=== PATIENT | female | born 1950 | race Caucasian/White ===

== ENCOUNTER → 2020-09-28 14:17 | Outpatient (CLI) | payer OTHER, SELFPAY | PROVIDERS: Referring Provider Nurse Practitioner Family; Visit Provider Nurse Practitioner Family | DX: L02.91 Cutaneous abscess, unspecified (principal) | CPT/HCPCS: 87070; 87077; 87186; 87205 ==

== ENCOUNTER → 2020-10-08 14:02 | Outpatient (CLI) | payer MEDICARE, SELFPAY ==
[2020-10-08 15:22] LABS: Absolute Lymphocyte Count 1.23 X10^3/uL (0.83-4.51); Absolute Neutrophil Count 3.4 X10^3/uL (2.0-7.7); Basophil# 0.06 X10^3/uL; Basophil% 1.1 % (0-1); Eosinophil# 0.04 X10^3/uL; Eosinophils% 0.8 % (0-5); Hematocrit 44.5 % (37-47); Hemoglobin 14.4 g/dL (12.0-15.0); Lymphocyte # 1.23 X10^3/ul (4.0); Lymphocyte % 23.3 % (19-41); Mean Corp Hgb Conc 32.4 g/dL (32-36); Mean Corpuscular Hgb 31.4 pg (27.0-32.0); Mean Corpuscular Volume 96.9 fL (81-99); Mean Platelet Vol. 10.2 fl (6.2-12.0); Monocyte# 0.51 X10^3/uL; Monocyte% 9.7 % (0-10); NRBC Flagged by Analyzer 0 % (0-5); Neutrophil # 3.43 X10^3/uL (2.7-7.7); Neutrophil % 64.9 % (47-70); Platelet Count 227 K/mm3 (150-450); RBC Distribution Width CV 12.3 % (11.6-14.6); Red Blood Count 4.59 M/mm3 (4.2-5.4); White Blood Count 5.3 K/mm3 (4.4-11.0)
[2020-10-08 15:42] LABS: ALB/GLOB Ratio 1.1 RATIO (0.9-2.4); AST(SGOT) 23 U/L (15-37); Alanine Aminotransfer ALT/SGPT 25 U/L (13-56); Albumin, Serum 3.9 g/dL (3.2-5.0); Alkaline Phosphatase 79 U/L (45-117); Anion Gap 5 (5-15); BUN 16 mg/dL (7-18); Calcium,Total 9.5 mg/dL (8.5-10.1); Chloride 103 mmol/L (98-107); Cholesterol 223 mg/dL (200); Creatinine, Serum 0.67 mg/dL (0.55-1.02); EST Glomerular Filtration Rate 93 mL/min (>60); Est Glom Filt Rate - Afr Amer 112 mL/min (>60); Globulin 3.7 g/dL (2.2-4.2); Glucose 95 mg/dL (74-106); High Density Lipoprotein 94 mg/dL; Potassium 3.7 mmol/L (3.5-5.1); Protein, Total 7.6 g/dL (6.4-8.2); Sodium Level 138 mmol/L (136-145); Triglycerides 49 mg/dL; Very Low Density Lipoprotein 10 mg/dL (5-40)
[2020-10-08 15:44] LABS: Vitamin D,25 Hydroxy 60.2 ng/mL
== END ==
PROVIDERS: PCP Internal Medicine; Referring Provider Internal Medicine; Visit Provider Internal Medicine
DX: M81.0 Age-related osteoporosis without current pathological fracture (principal); I10 Essential (primary) hypertension
CPT/HCPCS: 36415; 80053; 80061; 82306; 85025

== ENCOUNTER → 2020-10-15 12:40 | Outpatient (CLI) | payer MEDICARE, SELFPAY ==
[2020-10-11 13:53] VITALS: BMI 19.6
--- NOTE | 2020-10-15 12:43 | BI_ITS ---
MAMMOGRAPHY - BILATERAL SCREENING REASON FOR EXAM: Female, 69 years old. Routine annual screening examination. PERTINENT HISTORY: Non-contributory. TECHNIQUE: Digital bilateral breast azalia (3D mammographic acquisition) in the CC and MLO projections. 2-D mediolateral oblique (MLO) and craniocaudad (CC) views of both breasts were obtained. CAD: Full Field Digital Mammography with Computer Added Detection was performed. COMPARISON: No comparison mammograms available at this time. If any prior films become available, an addendum to this report can be generated. FINDINGS: Breast Composition: The breasts are extremely dense, which lowers the sensitivity of mammography. There are no dominant masses or suspicious calcifications. No other significant abnormalities are identified. BI/SCRN MAMM (CAD)W/AZALIA BILAT IMPRESSION: Negative screening mammogram. Yearly followup mammogram recommended. (A) ASSESSMENT CATEGORY: BIRADS Category 1: Negative. A letter regarding these results will be sent to the patient by the facility within 30 days. Approximately 10% of breast cancers are not detected by mammography. A normal mammogram should not delay biopsy of a clinically suspicious abnormality. [id number] Electronically Signed: Guillermo Baires MD at 15:19 EDT , Service support ,
--- NOTE | 2020-10-15 12:49 | BD_ITS ---
STUDY: DUAL ENERGY X-RAY ABSORPTIOMETRY / DXA REASON FOR EXAM: Female, 69 years old. Osteoporosis TECHNIQUE: Bone Mineral Density (BMD) measurements of lumbar spine and bilateral hips were obtained. COMPARISON: None. FINDINGS: Lumbar Spine (L1-L4): g/cm2 (0.661) / T-score (-4.3) / Z-score (-2.6) Findings are suggestive of osteoporosis with a high fracture risk. Increased kyphosis. Left Femur Total: g/cm2 (0.525) / T-score (-3.8) / Z-score (-2.3) Left Femoral Neck: g/cm2 (0.555) / T-score (-3.5) / Z-score (-1.5) Right Femur Total: g/cm2 (0.523) / T-score (-3.8) / Z-score (-2.3) Right Femoral Neck: g/cm2 (0.611) / T-score (-3.1) / Z-score (-1.3) BD/Dexa Bone Density Study IMPRESSION: The patient is considered osteoporotic as outlined below according to World Cory Organization (WHO) criteria with a high fracture risk. Reference Information: The T-score is the number of standard deviations above or below the standard which is normal for young adults at their peak bone mineral density. The World Health Organization (WHO) interprets the T-scores as follows: Above -1 Normal bone density Between -1 and -2.5 Osteopenia Equal to / or below -2.5 Osteoporosis As a practical clinical guideline, osteopenia may be graded as follows: Mild -1 through -1.5 Moderate -1.6 through -2.0 Severe -2.1 through -2.4 The Z-score is the number of standard deviations above or below age-matched controls. A Z-score of less than -1.5 would be considered abnormal. References: 1. NIH Osteoporosis and Related Bone Diseases www osteo.org 2. International Society for Clinical Densitometry www iscd.org 3. National Osteoporosis Foundation www nof.org Electronically Signed: Guillermo Baires MD at 13:43 EDT , Service support ,
== END ==
PROVIDERS: PCP Internal Medicine; Referring Provider Internal Medicine; Visit Provider Internal Medicine
DX: Z12.31 Encounter for screening mammogram for malignant neoplasm of breast (principal); M81.0 Age-related osteoporosis without current pathological fracture
CPT/HCPCS: 77063; 77067; 77080

== ENCOUNTER → 2020-10-24 15:09 | Outpatient (CLI) | payer MEDICARE, SELFPAY | PROVIDERS: PCP Internal Medicine; Referring Provider Internal Medicine; Visit Provider Internal Medicine | DX: B37.0 Candidal stomatitis (principal) | CPT/HCPCS: 87070; 87205 ==

== ENCOUNTER 2020-11-06 11:21 | Day surgery (SDC) | payer MEDICARE, SELFPAY ==
[2020-10-11 13:53] VITALS: BMI 19.6
--- NOTE | 2020-11-06 | CYST_PTH ---
PATIENT: OLAYINKA CROW LOC: [facility] [place] U#:[id number] AGE/SX: 69/F ROOM: RE11/06/[address]: Dr. Tawanda Tavera MD : 1950 BED: DIS: 11/06/2020 SPEC #: [id number] RECD: 11/06/20 14:07 STATUS: JAMMIE RODRIGUEZ #: [id number] DOMONIQUE: 11/06/20 00:[address]: Tawanda Tavera DEPT: SURGICAL PATHOLOGY RECD BY: Darrell Montague ENTERED: 11/07/20 07:42 SP TYPE: Cyst OTHR DR: Dr. Adria Dos Santos MD Tissues: CYST Procedures: Surgery Specimen Level IV HEADER OPERATION: Excision sebaceous cyst left thigh PRE-OP DIAGNOSIS: Sebaceous cyst TISSUE SUBMITTED: Sebaceous cyst left thigh MICROSCOPIC DIAGNOSIS Sebaceous cyst left thigh, excision: Epidermal inclusion cyst. Extensive dermal chronic inflammation, histiocytic reaction and foreign body giant cell reaction. JUAN MANUEL:cecy 11/08/2020 MICROSCOPIC DESCRIPTION Slides are reviewed. GROSS DESCRIPTION Received in fixative is one container labeled with the patient's name and designated left thigh sebaceous cyst. The specimen consists of a piece of gooden-white skin measuring 2.5 x 1 cm and up to 0.3 cm in thickness. The skin surface shows area of ulceration. The specimen is inked, serially sectioned and submitted entirely in one cassette. / JUAN MANUEL:cecy 11/07/20 TC:5 CPT: 92284
[2020-11-06 11:54] VITALS: BP 155/85; PULSE 98; RESP 16; TEMP 36.2; O2SAT 99; BMI 19.8
[2020-11-06] MEDS: Lactated Ringers 1,000 ML 100 ML IV ×2 (12:00→13:33)
[2020-11-06] MEDS: Lidocaine 1%/Epi 1:200 (30ml) 30 ML AMPUL (12:15)
--- NOTE | 2020-11-06 12:33 | HP.PCM_ITS ---
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 Is patient in pain?: No Allergies cefaclor Allergy (Intermediate, Verified 10/11/20 13:28) Rash tetracycline Allergy (Intermediate, Verified 10/11/20 13:28) sores in mouth Medications ascorbate calcium (vitamin C) 500 mg tablet 500 mg PO DAILY 10/02/20 [History Confirmed 10/11/20] calcium carb 333 mg-vit D3 133 unit-mag ox 133 mg-zinc oxide 5 mg tab tab PO 10/02/20 [History Confirmed 10/11/20] cholecalciferol (vitamin D3) 50 mcg (2,000 unit) capsule 50 mcg PO DAILY 10/02/20 [History Confirmed 10/11/20] cyanocobalamin (vitamin B-12) 1,000 mcg capsule 1,000 mcg PO .qad cap 10/02/20 [History Confirmed 10/11/20] lysine 500 mg tablet 500 mg PO DAILY 10/02/20 [History Confirmed 10/11/20] super papaya enzyme plus PO 10/02/20 [History Confirmed 10/11/20] nystatin 100,000 unit/mL oral suspension 500,000 unit PO TID #200 ml 10/08/20 [Rx Confirmed 10/11/20] PFSH Medical History GERD (gastroesophageal reflux disease) (Acute) GI problem (Acute) Hemorrhoids (Acute) History of back problems (Acute) Hx of migraine headaches (Acute) Osteoporosis (Acute) Seasonal allergies (Acute) Vision problem (Acute) Vitamin deficiency (Acute) infected sebaceous cyst left thigh (Acute) Surgical History History of removal of cyst (Acute) history ORIF right little finger (Acute) Family History Mother Heart disease Arthritis Hypertension Kidney disease Skin cancer Thyroid disorder Father Heart disease Hypertension CVA (cerebral vascular accident) Brother Heart disease Hypertension Grandfather Alcohol abuse Arthritis Pancreatic cancer Other Severe allergy Social History (Updated 10/11/20 @ 15:[address] Tawanda Tavera MD) Smoking Status: Never smoker alcohol intake: never substance use type: does not use what type of physical activity do you participate in: walking frequency: 1-2 times per week HPI HPI HPI: OLAYINKA CROW, is a 69 F who presents to the office today for HPI HPI Surgical H&P: Yes HPI: OLAYINKA CROW, is a 69 F who presents to the office today for Follow-up for cyst on her inner thigh. The patient has decreased erythema after taking antibiotics. She did develop thrush with antibiotics. 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 General General: Yes weight change and fatigue; no appetite, colon cancer, breast cancer or weakness HEENT HEENT: No difficulty swallowing, eye injury, eye surgery, swollen glands or hoarseness Endo Endocrine: No thyroid disease, diabetes mellitus, thyroid cancer, Hair loss, heat intolerance or cold intolerance Skin Skin: Yes rash; no changing moles Breast Breast: No left breast lump, right breast lump, nipple discharge, breast pain, abnormal mammogram, abnormal US or breast enlargement Musc Musculoskeletal: Yes back problems; no arthritis, rheumatoid arthritis, gout or joint pain Cardio Cardiovascular: No murmur, pacemaker, heart disease, atrial fibrillation, high blood pressure, heart attack, heart stent, palpitations, shortness of breat with exertion or chest pain Psych Psychiatric: No depression, anxiety or hearing voices Resp Respiratory: No shortness of breath, No sleep apnea, No cough, No COPD, No asthma, No emphysema, No wheezing Gastro Gastrointestinal: No abdominal pain, No nausea or vomiting, Yes diarrhea, No constipation, No blood in stool, No acid reflux, Yes hemorrhoids, No ulcers, No gallbladder problem, No black,tarry stools Ashish Hematologic: No blood thinners, No blood disorders, No bleeding, No anemia, No blood clots Neuro Neurologic: No system reviewed and no additional complaints, except as docu, No as per HPI, No abnormal walking, No abnormal hearing, No abnormal movements, No abnormal speech, No behavioral changes, No burning sensations, No confusion, No seizure-like activity, No unsteadiness, No dizziness, No localized weakness, No frequent falls, No headache(s), No lack of coordination, No loss of vision, No memory loss, Yes numbness, No other visual disturbances, No radiating pain, No restless legs, No sensory deficit, No fainting, Yes tingling, No tremor(s), No weakness, No other Exam Const General: cooperative Orientation: alert, oriented x3 Chest Breast Palpation: No nipple discharge Resp Effort & Inspection: normal respiratory effort Auscultation: clear to auscultation bilaterally Cardio Rate: regular rate Rhythm: regular rhythm Heart Sounds: no murmurs GI Inspection: non-distended Palpation: soft, nontender Skin Other: Inflamed sebaceous cyst of the left thigh Assessment & Plan Problems 1. Infected sebaceous cyst L72.3; L08.9 Plan The patient has an infected sebaceous cyst of the left thigh. It is improved since last visit but it is still inflamed. The area is open and I was able to express sebaceous material through it. It is still inflamed but not grossly infected. I recommend excision in the operating room. I discussed this with her in detail as well as the risks of bleeding and infection. The patient is willing to have this removed in the operating room under light sedation. Tawanda Tavera MD Pager: [facility] [address] [place] [address], [address] [place] [address] Office: I have re-examined the patient. There are no clinical changes since date of exam.
[2020-11-06 13:10] VITALS: BP 101/64; BP 155/85; BP 98/56; PULSE 85; PULSE 88; RESP 18; TEMP 36.4; O2SAT 95; O2SAT 97
--- NOTE | 2020-11-06 13:11 | OP.PCM_ITS ---
Problem List (1) Sebaceous cyst Status: Acute Report of Operation Date of Procedure: 11/06/20 Pre-Operative Diagnosis: Inflamed sebaceous cyst of the left thigh Post-Operative Diagnosis: Same Surgery/Procedure Performed:: Excision of sebaceous cyst of the left thigh Specimen's removed: Left thigh cyst Description of Procedure: Patient was brought back to the operating room MAC anesthesia was induced. The left thigh was prepped and draped in usual sterile fashion. An incision was marked and then injected with local anesthesia. An incision was made with a s calpel in an elliptical fashion. The complete cyst wall was removed and this was resected sharply back to clean fat. The cavity was irrigated and suctioned dry and hemostasis was obtained using electrocautery. The cyst wall measured approximately 1.8 cm. The skin was closed with interrupted 3-0 Vicryl sutures in a subdermal fashion. Steri-Strips and bandage were then applied. Patient was then taken to PACU in stable condition.
--- NOTE | 2020-11-06 13:14 | DCINST_ITS ---
Discharge Diet: Light diet - advance as tolerated Discharge Activity: No Restrictions, May Drive May shower in (days): 1 Lifting Restrictions: no restriction Call your doctor if your incision/area has: Continuous Slow Oozing, Sudden Increased Bleeding, Increased Pain/ Swelling, Increased Redness, Foul Smelling Discharge, Swelling at the incision site Call your doctor if you observe: Fever of 101 or Higher Suture Line Care: Avoid Pulling/Pushing, Avoid Pinching/Bending Change Dressing in (Days):: 2 - Leave steri-strips in place for 1 week. Allergies/Adverse Reactions: Allergies cefaclor Allergy (Intermediate, Verified 11/06/20 11:32) Rash tetracycline Allergy (Intermediate, Verified 11/06/20 11:32) sores in mouth Medications to take at Discharge ascorbate calcium (vitamin C) 500 mg tablet 500 mg PO DAILY 10/02/20 cholecalciferol (vitamin D3) 50 mcg (2,000 unit) capsule 50 mcg PO DAILY 10/02/20 cyanocobalamin (vitamin B-12) 1,000 mcg capsule 1,000 mcg PO QODAY cap 10/02/20 lysine 500 mg tablet 500 mg PO DAILY 10/02/20 super papaya enzyme plus 1 tablet PO TID 10/02/20 Calmag Zinc 15 ml PO DAILY 10/18/20 [place]ee-3 Fatty Acids/Fish Oil [[place] 3 Fish Oil Softgel] 1 each PO DAILY 10/18/20 L.acidoph,Paracasei, B.lactis [Probiotic] 1 each PO DAILY 10/29/20 Hydrocodone/Acetaminophen [Hydrocodon-Acetaminophen 5-325] 1 tab PO Q6H PRN PRN 2 Days #5 tablet 11/06/20 The following prescriptions were given: Hydrocodone/Acetaminophen [Hydrocodon-Acetaminophen 5-325] 1 tab PO Q6H PRN PRN 2 Days #5 tablet PRN Reason: Pain Score 4-10/10 Transmission Status: Sent to [facility] Primary Care Physician: Adria Dos Santos MD [Primary Care Provider] - Test Results: Test results from this visit will be discussed in further detail at your follow- up appointment, if applicable. Please Follow Up With: Tawanda Tavera MD When: Please call to schedule 2 week follow up appointment. [phone]
[2020-11-06 13:15] VITALS: BP 105/63; BP 155/85; PULSE 85; RESP 18; O2SAT 96
[2020-11-06 13:20] VITALS: BP 102/66; BP 155/85; PULSE 81; RESP 18; O2SAT 98
[2020-11-06 13:34] VITALS: BP 115/71; BP 155/85; PULSE 84; RESP 18; TEMP 36.3; O2SAT 98
[2020-11-06 14:10] VITALS: BP 125/77; BP 155/85; PULSE 81; RESP 16; TEMP 36.8; O2SAT 95
== END 2020-11-06 14:37 | disposition home or self-care (01) ==
LOC: SDC 11:22 → AC 11:24
PROVIDERS: PCP Internal Medicine; Referring Provider Surgery; Visit Provider Surgery
PROC: (CPT 11402; principal; 2020-11-06 12:45)
DX: L72.3 Sebaceous cyst (principal); L72.0 Epidermal cyst; L08.9 Local infection of the skin and subcutaneous tissue, unspecified; Z88.1 Allergy status to other antibiotic agents
CPT/HCPCS: 11402; 87426; 88304; 88305; C9803; J7120; J2405

== ENCOUNTER 2021-11-06 15:38 | Outpatient (CLI) | payer MEDICARE, SELFPAY ==
[2021-11-06 16:37] LABS: Absolute Lymphocyte Count 1.13 X10^3/uL (0.83-4.51); Absolute Neutrophil Count 5.1 X10^3/uL (2.0-7.7); Basophil# 0.07 X10^3/uL; Eosinophil# 0.03 X10^3/uL; Eosinophils% 0.4 % (0-5); Hematocrit 42.7 % (37-47); Hemoglobin 13.6 g/dL (12.0-15.0); Lymphocyte # 1.13 X10^3/ul (0.83-4.51); Mean Corp Hgb Conc 31.9 g/dL (32-36); Mean Corpuscular Volume 97.3 fL (81-99); Mean Platelet Vol. 9.4 fl (6.2-12.0); Monocyte# 0.77 X10^3/uL; Monocyte% 10.9 % (0-10); NRBC Flagged by Analyzer 0 % (0-5); Neutrophil # 5.06 X10^3/uL (2.7-7.7); Neutrophil % 71.6 % (47-70); Platelet Count 209 K/mm3 (150-450); RBC Distribution Width CV 11.9 % (11.6-14.6); RBC Distribution Width SD 43.4 fl (35.1-43.9); Red Blood Count 4.39 M/mm3 (4.2-5.4); White Blood Count 7.1 K/mm3 (4.4-11.0)
[2021-11-06 16:55] LABS: Vitamin D,25 Hydroxy 68.8 ng/mL
[2021-11-06 16:57] LABS: ALB/GLOB Ratio 0.9 RATIO (0.9-2.4); AST(SGOT) 23 U/L (15-37); Alanine Aminotransfer ALT/SGPT 30 U/L (13-56); Albumin, Serum 3.6 g/dL (3.2-5.0); Alkaline Phosphatase 83 U/L (45-117); Anion Gap 4 (5-15); BUN 22 mg/dL (7-18); Calcium,Total 9.3 mg/dL (8.5-10.1); Chloride 103 mmol/L (98-107); Cholesterol 211 mg/dL (200); Creatinine, Serum 0.69 mg/dL (0.55-1.02); EST Glomerular Filtration Rate 89 mL/min (>60); Est Glom Filt Rate - Afr Amer 108 mL/min (>60); Glucose 123 mg/dL (74-106); High Density Lipoprotein 76 mg/dL; Potassium 4.1 mmol/L (3.5-5.1); Protein, Total 7.6 g/dL (6.4-8.2); Sodium Level 138 mmol/L (136-145); Triglycerides 49 mg/dL; Very Low Density Lipoprotein 10 mg/dL (5-40)
== END 2021-11-06 23:59 | disposition home or self-care (01) ==
PROVIDERS: PCP Internal Medicine; Referring Provider Internal Medicine; Visit Provider Internal Medicine
DX: M81.0 Age-related osteoporosis without current pathological fracture (principal); E78.5 Hyperlipidemia, unspecified; H93.19 Tinnitus, unspecified ear
CPT/HCPCS: 36415; 80053; 80061; 82306; 85025

== ENCOUNTER → 2022-05-29 | Outpatient (CLI) | payer MEDICARE, SELFPAY ==
--- NOTE | 2022-05-29 14:31 | BI_ITS ---
MAMMOGRAPHY - BILATERAL SCREENING REASON FOR EXAM: Female, 71 years old. Routine annual screening examination. PERTINENT HISTORY: Non-contributory. TECHNIQUE: Digital bilateral breast azalia (3D mammographic acquisition) in the CC and MLO projections. 2-D mediolateral oblique (MLO) and craniocaudad (CC) views of both breasts were obtained. CAD: Full Field Digital Mammography with Computer Added Detection was performed. COMPARISON: Comparison is made with prior study of 10/15/2020. FINDINGS: Breast Composition: The breasts are extremely dense, which lowers the sensitivity of mammography. There are no dominant masses or suspicious calcifications. No other significant abnormalities are identified. There has been no significant change since the prior study. BI/SCRN MAMM (CAD)W/AZALIA BILAT IMPRESSION: Stable bilateral screening mammogram. Yearly follow-up mammogram recommended. (A) ASSESSMENT CATEGORY: BIRADS Category 1: Negative. A letter regarding these results will be sent to the patient by the facility within 30 days. Approximately 10% of breast cancers are not detected by mammography. A normal mammogram should not delay biopsy of a clinically suspicious abnormality. [id number] Electronically Signed: Guillermo Baires MD at 15:09 EDT ,
== END | disposition home or self-care (01) ==
LOC: OPBI 14:31
PROVIDERS: PCP Internal Medicine; Referring Provider Internal Medicine; Visit Provider Internal Medicine
DX: Z12.31 Encounter for screening mammogram for malignant neoplasm of breast (principal)
CPT/HCPCS: 77063; 77067

== ENCOUNTER 2022-06-11 15:00 | Outpatient (RCR) | payer MEDICARE, SELFPAY ==
--- NOTE | 2022-06-08 09:15 | HP.PTEVAL_ITS ---
Patient's Visit Information OLAYINKA CROW is a 71 year old F referred to Physical Therapy by Dr. Adria Dos Santos MD with a diagnosis of imbalance and gait abnormality. Date of Evaluation: 05/29/22 Physical Therapist: Luis Gordillo DPT - Visit Plan Frequency: 1x/Week Duration: 6 Weeks Plan: Start with retro wt. shifting, narrow LILIAM and eyes closed vestibular exercises. PRogress HEP weekly. - Subjective Pt. is here today for her initial evaluation with diagnosis of imbalance and gait abnormality. Pt. reports overall doing okay, but has had increased imbalance over the past 3 months. She reports having some bilateral muscle wea kness in her legs, but not severe. She feels like she falls forward or to the right side. She has always been able to correct her LOB. Pt. reports no pain. NO changes in vision, no additional medications recently. She denies dizziness or light headedness as well. Pt. has not been exercising as much or doing as much walking since having a surgery ~2 months ago. Pt. has a gluteal abscess excision. Pt. is hopeful to get back to more walking and decrease her risk for falling by improving her balance. - Objective POSTURE: pt. had slight increased flexed posture. Mostly through her thoracic spine. Rigid thoracic spine noted. PALPATION: No issues with palpation throughout BLEs. NEURO: pt. has normal sensation in BLEs to light and sharp touch. Pt. has normal DTR to bilateral Achilles and Patellar tendons. Pt. is able to rise on toe without issues, increased difficulty with rising on heels. ROM: Pt. has good ROM in bilateral LEs. NO pain noted. Slight HS tightness b ilaterally ~75deg in 90/90 testing. Normal hip ROM noted. MMT: RLE: ankle DF 27.7#, PF 50.1#; knee: ext 29.1, flexion 23.3#; hip: flexion 22.1#, abd 15.4#; ext 31.3#. LLE: ankle DF26.5# PF 44.6#; knee: ext 24.1#; flexion 21.8#; hip: flexion 24.3#, abd 14.5#; ext 29.1#. GAIT: Pt. has decent gait pattern without AD. She had slight flexed posture in stance. Pt. has symmetrical step length, mild lateral hip translation. No Trendelenburg noted. Good swing through with good B foot clearance. STAIRS: Pt. is able to negotiate ascend without HR, but uses 1 HR with descending. Reciprocal pattern noted. TU.9sec without AD. FGA . PT. did well on the CATSIB being able to maintain stability but did have increased sway. I did have her do this on the balance machine and she had more sway and was worse than normal with eyes closed and narrow LILIAM. She was with in normal limits for the other 3 movements. This also showed that she tends to atnerior wt. shift almost constantly. - Balance/Special Test Scores Functional Gait Assessment Score: 27 % Disability: 10.0000 CATSIB Score (Max score 120 seconds): 120 Lower Extremity Functional Score: 50 TUG Test Time Seconds: 10.9 30 Second Chair Rise Test Seconds: 11 - Goals Goal 1:: LTG: Pt. to be I with HEP. Goal Time Frame: 4-6 Weeks Goal 2:: STG: PT. to be able maintain SLS for 30 sec on BLEs. Goal Time Frame: 2 Weeks Goal 3:: LTG: Pt. to score with in normal levels of CATSIB and postural sway index. Goal Time Frame: 2-4 Weeks Goal 4:: LTG: Pt. report no occurrences of near misses with falls. Goal Time Frame: 4-6 Weeks - Rehabilitation Potential Physical Therapy Diagnosis: Pt. has signs and symptoms consistent with imbalance and gait abnormalities. She has not fallen, but reports near falls, mostly forward and to the side. Pt. is overall doing well, but would benefit from PT to increase her stability and reduce risk for future falls. Rehabilitation Potential: Excellent - Anticipated Interventions Patient/Client Instruction: Educate patient on: Condition, Plan of Care, Risk Factors, Benefits of Fitness Program For the Purpose of:: To foster healthy habits, To improve decision making, To facilitate caregiver knowledge, To improve self management, To prevent re- injury, To improve ability to perform tasks related to life management Therapeutic Exercise to Include: Strength training, Power training, Balance training, Coordination, Postural training, Flexibilty training, Gait and locomotor training, via Neurocom Balance Mas, Passive ROM, Active ROM For the Purpose of:: To decrease level of supervision to perform tasks, To improve ability of physical actions for home/community/work/leisure, To improve gait and locomotor functions, To improve health of tissue, To decrease soft tissue restriction, To increase flexibility/ROM, To improve endurance, To improve balance, To improve safety with gait Thank you for the opportunity to evaluate your patient. For Medicare and Medicare HMO plans, please review the plan of care and approve it. It will need to be FAXED BACK to us at [phone] for Medicare purposes. For Medicare only, by signing this I certify the plan of care. Please let me know if there are questions or concerns regarding this plan of care. Physician Signature: Date:
== END 2022-06-11 19:00 | disposition home or self-care (01) ==
LOC: PT 15:00
PROVIDERS: PCP Internal Medicine; Referring Provider Internal Medicine; Visit Provider Internal Medicine
DX: R26.89 Other abnormalities of gait and mobility (principal)
CPT/HCPCS: 97161; 97530

== ENCOUNTER → 2022-11-19 | Outpatient (CLI) | payer MEDICARE, SELFPAY ==
[2022-11-19 16:51] LABS: Absolute Lymphocyte Count 1.21 X10^3/uL (0.83-4.51); Absolute Neutrophil Count 4.3 X10^3/uL (2.0-7.7); Basophil# 0.08 X10^3/uL; Basophil% 1.2 % (0-1); Eosinophil# 0.05 X10^3/uL; Eosinophils% 0.8 % (0-5); Hematocrit 43.4 % (37-47); Hemoglobin 13.9 g/dL (12.0-15.0); Lymphocyte # 1.21 X10^3/ul (0.83-4.51); Lymphocyte % 18.7 % (19-41); Mean Corpuscular Hgb 31.4 pg (27.0-32.0); Mean Platelet Vol. 9.9 fl (6.2-12.0); Monocyte# 0.85 X10^3/uL; Monocyte% 13.2 % (0-10); NRBC Flagged by Analyzer 0 % (0-5); Neutrophil # 4.26 X10^3/uL (2.7-7.7); Neutrophil % 65.9 % (47-70); Platelet Count 229 K/mm3 (150-450); RBC Distribution Width CV 12.6 % (11.6-14.6); RBC Distribution Width SD 45.1 fl (35.1-43.9); Red Blood Count 4.43 M/mm3 (4.2-5.4); White Blood Count 6.5 K/mm3 (4.4-11.0)
[2022-11-19 17:09] LABS: ALB/GLOB Ratio 0.9 RATIO (0.9-2.4); AST(SGOT) 29 U/L (15-37); Alanine Aminotransfer ALT/SGPT 40 U/L (13-56); Albumin, Serum 3.5 g/dL (3.2-5.0); Alkaline Phosphatase 72 U/L (45-117); Anion Gap 2 (5-15); BUN 23 mg/dL (7-18); BUN/Creat Ratio 33.7 RATIO (10-20); Calcium,Total 9.7 mg/dL (8.5-10.1); Chloride 103 mmol/L (98-107); Creatinine, Serum 0.68 mg/dL (0.55-1.02); EST Glomerular Filtration Rate 89 mL/min (>60); Est Glom Filt Rate - Afr Amer 108 mL/min (>60); Globulin 4.1 g/dL (2.2-4.2); Glucose 100 mg/dL (74-106); Magnesium 2.2 mg/dL (1.6-2.6); Potassium 3.9 mmol/L (3.5-5.1); Protein, Total 7.6 g/dL (6.4-8.2); Sodium Level 137 mmol/L (136-145)
[2022-11-19 17:11] LABS: Vitamin D,25 Hydroxy 73.7 ng/mL
== END | disposition home or self-care (01) ==
LOC: BIMLAB 15:05
PROVIDERS: PCP Internal Medicine; Referring Provider Internal Medicine; Visit Provider Internal Medicine
DX: I10 Essential (primary) hypertension (principal); M81.0 Age-related osteoporosis without current pathological fracture
CPT/HCPCS: 36415; 80053; 82306; 83735; 85025

== ENCOUNTER → 2022-12-15 | Outpatient (CLI) | payer MEDICARE, SELFPAY ==
--- NOTE | 2022-12-15 14:01 | BD_ITS ---
STUDY: DUAL ENERGY X-RAY ABSORPTIOMETRY / DXA REASON FOR EXAM: Female, 72 years old. Osteoporosis TECHNIQUE: Bone Mineral Density (BMD) measurements of lumbar spine and bilateral hips were obtained. COMPARISON: Comparison is made with prior study of October 15, 2020. FINDINGS: Lumbar Spine (L1-L4): g/cm2 (0.615) / T-score (-4.0) / Z-score (-1.6) Findings are suggestive of osteoporosis with a high fracture risk. Left Femur Total: g/cm2 (0.530) / T-score (-3.4) / Z-score (-1.7) Left Femoral Neck: g/cm2 (0.500) / T-score (-3.1) / Z-score (-1.1) Right Femur Total: g/cm2 (0.555) / T-score (-3.2) / Z-score (-1.4) Right Femoral Neck: g/cm2 (0.494) / T-score (-3.2) / Z-score (-1.2) The T-Scores on the most recent prior examination were: Lumbar Spine (L1-L4): There has been improvement of bone density since the previous examination. Left Femur Total: which represents an improvement of 12.2%. Right Femur Total: which represents an improvement of 17.8%. BD/Dexa Bone Density Study IMPRESSION: The patient is considered osteoporotic as outlined below according to World Cory Organization (WHO) criteria with a high fracture risk. There has been improvement of bone density since the previous examination. Reference Information: The T-score is the number of standard deviations above or below the standard which is normal for young adults at their peak bone mineral density. The World Health Organization (WHO) interprets the T-scores as follows: Above -1 Normal bone density Between -1 and -2.5 Osteopenia Equal to / or below -2.5 Osteoporosis As a practical clinical guideline, osteopenia may be graded as follows: Mild -1 through -1.5 Moderate -1.6 through -2.0 Severe -2.1 through -2.4 The Z-score is the number of standard deviations above or below age-matched controls. A Z-score of less than -1.5 would be considered abnormal. References: 1. NIH Osteoporosis and Related Bone Diseases www osteo.org 2. International Society for Clinical Densitometry www iscd.org 3. National Osteoporosis Foundation www nof.org Electronically Signed: Guillermo Baires MD at 14:12 EDT ,
== END | disposition home or self-care (01) ==
LOC: OPBD 13:54
PROVIDERS: PCP Internal Medicine; Referring Provider Internal Medicine; Visit Provider Internal Medicine
DX: M81.0 Age-related osteoporosis without current pathological fracture (principal)
CPT/HCPCS: 77080

== ENCOUNTER → 2023-01-23 | Outpatient (CLI) | payer MEDICARE, SELFPAY ==
--- NOTE | 2023-01-23 14:09 | RAD_ITS ---
STUDY: XR Chest 2 Views 01/23/2023 2:05 PM REASON FOR EXAM: Female, 72 years old. CHEST PAIN cough COMPARISON: None TECHNIQUE: XR Chest 2 Views FINDINGS: There is no demonstrated pleural abnormality. Left lower lobe infiltrate. The lung youngblood are hyperexpanded. Enlarged heart size. Normal mediastinum. Normal jaclyn. Prominent appearing increased interstitial lung markings. Normal visualized pulmonary arteries. There is atherosclerotic calcification of the aortic arch with tortuosity. There are diffuse degenerative changes of the visualized thoracic spine. There is degenerative osteoarthritis of the bilateral shoulders. There is no demonstrated abnormality of the visualized soft tissue structures of the upper abdomen. RAD/Chest PA and Lateral IMPRESSION: Left sided pneumonia. Electronically Signed: Honorio Alexander MD at 14:28 EDT ,
== END | disposition home or self-care (01) ==
LOC: RAD 14:01
PROVIDERS: PCP Internal Medicine; Referring Provider Physician Assistant; Visit Provider Physician Assistant
DX: R05.9 Cough, unspecified (principal)
CPT/HCPCS: 71046

== ENCOUNTER 2023-01-25 09:44 | Emergency (ER) | payer MEDICARE, SELFPAY ==
[2023-01-25] VITALS (7 sets, daily range): BP systolic 101–127; BP diastolic 69–84; PULSE 95–149; RESP 18–30; TEMP 36.8; O2SAT 92–97; BMI 19.8
--- NOTE | 2023-01-25 09:53 | NURSING ---
NO OLD EKGS
--- NOTE | 2023-01-25 09:57 | RAD_ITS ---
STUDY: X-RAY CHEST REASON FOR EXAM: Female, 72 years old. Check progression of pneumonia TECHNIQUE: PA and lateral views of the chest. COMPARISON: Comparison is made with prior study dated January 23, 2023. FINDINGS: EKG electrodes are seen. Hyperinflation. Since prior study, there has been progressive infiltration at the lung bases with evidence of a bronchiectasis. There is also evidence of a progressive increased markings at the right lung apex. Blunting of both costophrenic angles. Normal size heart. Normal mediastinum and jaclyn. Normal visualized pulmonary arteries. There is atherosclerotic calcification of the aortic arch with tortuosity. There are diffuse degenerative changes of the visualized thoracic spine. Normal visualized ribs, clavicles, and shoulders. There is no demonstrated abnormality of the visualized soft tissue structures of the upper abdomen. RAD/Chest PA and Lateral IMPRESSION: Progressive infiltrates at the lung bases as well as in the right lung apex. Electronically Signed: Guillermo Baires MD at 11:06 EDT ,
--- NOTE | 2023-01-25 09:58 | EKG12_ITS ---
Test Reason : SOB Blood Pressure : / mmHG Vent. Rate : 149 BPM Atrial Rate : 300 BPM P-R Int : 150 ms QRS Dur : 134 ms QT Int : 334 ms P-R-T Axes : 241 -45 -81 degrees QTc Int : 526 ms Atrial flutter Left axis deviation Non-specific intra-ventricular conduction block T wave abnormality, consider inferior ischemia T wave abnormality, consider anterolateral ischemia Abnormal ECG Confirmed by MACRINA FELICIANO, JATINDER ([id number]), society editor YANG CARDENAS ([id number]) on 01/26/2023 9:14:16 AM Referred By: BB Confirmed By:JATINDER SCHRADER MD
--- NOTE | 2023-01-25 10:00 | EX.ED.DYSGE1 ---
HPI History of Present Illness Chief Complaint: Palpitations Informant: patient Narrative Narrative: Patient started coughing and having some fevers that she measured at 100.4, mild shortness of breath around 3 or 4 days ago, she saw urgent care, she had an outpatient chest x-ray here that showed pneumonia she was started on Levaquin 750 mg daily, they called her today and checked on her and apparently she said she was not feeling well or any better and so she decided come to the ER to be evaluated further. EMS detected A-fib/flutter, she states she had some palpitations last night felt like her heart was racing, she never had that like that before, however right now that she is going in the 150-165 range, she states she feels nothing. She had some right-sided nonpleuritic chest discomfort last night but none since. No other chest discomfort. [facility] Medical History Abdominal discomfort Acute bronchitis Balance problem Callus of foot Change in skin mole Contact with and (suspected) exposure to other viral communicable diseases Dry skin dermatitis Flu vaccine need GERD (gastroesophageal reflux disease) GI problem Health care maintenance Hemorrhoids History of back problems Hx of migraine headaches Hyperlipidemia Hypertension infected sebaceous cyst left thigh Left buttock abscess Osteoporosis Scoliosis Seasonal allergies Tinnitus Urinary incontinence Venous insufficiency of both lower extremities Vision problem Vitamin deficiency Winged scapula of right side Home Medications alendronate 70 mg tablet 70 mg PO QWEEK #14 tabs 10/27/22 [Rx Last Taken 01/18/23] albuterol sulfate 90 mcg/actuation aerosol inhaler (Ventolin HFA) 1 - 2 puff inhalation Q4H PRN PRN Wheezing ##1 01/25/23 [Rx Last Taken Unknown] apixaban 5 mg tablet (Eliquis) 5 mg PO BID #60 tabs 01/25/23 [Rx Last Taken Unknown] diltiazem HCl 120 mg capsule,extended release 24 hr (Cardizem CD) 120 mg PO Q24H #30 caps 01/25/23 [Rx Last Taken Unknown] Allergy/AdvReac Type Severity Reaction Status Date / Time cefaclor Allergy Intermediate Rash Verified 01/25/23 09:45 tetracycline Allergy Intermediate sores in Verified 01/25/23 09:45 mouth Family History Mother Heart disease Arthritis Hypertension Kidney disease Skin cancer Thyroid disorder Father Heart disease Hypertension CVA (cerebral vascular accident) Brother Heart disease Hypertension Grandfather Alcohol abuse Arthritis Pancreatic cancer Other Severe allergy Surgical History History of removal of cyst history ORIF right little finger Social History (Updated 01/25/23 @ 10:[address] Ronny Smith MD) housing: other details: mobile home Smoking Status: Never smoker alcohol intake: never substance use type: does not use what type of physical activity do you participate in: walking frequency: 1-2 times per week ROS ROS ED Constitutional Constitutional ED: Reports fever(s) and malaise; Denies chills Eyes Eyes: Denies change in vision or diplopia ENT ENT ED: Denies rhinorrhea or sore throat Cardiovascular Cardiovascular: Reports chest pain and racing heartbeat Respiratory/Chest Respiratory/Chest: Reports cough, dyspnea and sputum Gastrointestinal Gastrointestinal: Denies abdominal pain, diarrhea, nausea or vomiting Genitourinary Genitourinary ED: Denies dysuria or hematuria Musculoskeletal Musculoskeletal: Denies back pain or neck pain Integumentary Denies abscess or rash Neurologic Neurologic: Denies headache(s), paresthesias or weakness Psychiatric Psychiatric: Denies anxiety or suicidal thoughts EXAM Physical Exam Const Vital Signs: 01/25/23 09:46 01/25/23 09:53 01/25/23 09:58 Temperature 98.3 F Temperature Source Oral Pulse Rate 149 H Respiratory Rate 20 H Respiratory Effort Normal Non-Labored Blood Pressure 127/84 H Blood Pressure Mean 98 Pulse Ox 92 Oxygen Delivery Method Room Air Room Air 01/25/23 10:45 01/25/23 11:00 01/25/23 12:00 Temperature Temperature Source Pulse Rate 99 95 96 Respiratory Rate 30 H 28 H 28 H Respiratory Effort Blood Pressure 111/80 112/69 101/69 Blood Pressure Mean 90 83 79 Pulse Ox 93 97 93 Oxygen Delivery Method Room Air Room Air Room Air Positive well nourished and well developed Constitutional Narrative: No respiratory distress. Conversive in full sentences without difficulty. General Appearance ED: well developed and NAD HEENT Reports moist mucous membranes normocephalic and atraumatic Eyes PERRL and EOMs intact bilaterally Neck full ROM, no lymphadenopathy, supple and no JVD Resp Resp Narrative: Mildly tachypneic but in no distress. Rales left side greater than right base, decreased breath sounds on the left slightly. Trachea midline. Cardio regular rate, regular rhythm and no murmurs Rate: tachycardic GI non-tender and non-distended Auscultation: normoactive bowel sounds Palpation: soft Back/Spine no CVA tenderness General Back: other FROM Extremity normal to inspection General Extremety ED: Negative for edema, pulses abnormal or tenderness General Extremity: Negative for edema or pulses abnormal Neuro oriented x3, CN's II-XII intact bilaterally and no sensory deficits noted Sensorium / Orientation: awake and alert Motor Exam: strength 5/5 throughout Psych mental status grossly normal Skin no rashes or lesions noted and no wounds MDM MDM MDM Narrative Medical decision making narrative: Patient with significant tachycardia with a flutter, but otherwise her vitals are stable, pulse ox 92% on room air. She was given IV fluids as well as Cardizem 20 mg IV push on reevaluation, she is rate controlled and looks sinus, I repeated the EKG which confirms this. She states she is feeling no different because she really was not feeling the tachycardia. Liver enzymes are all slightly elevated, making me question of possibility of Legionella infection, which the levofloxacin should cover. I sent a Legionella antigen from the urine, it is negative. Chest x-ray 2 view on my interpretation shows bilateral infiltrates worse on the left, basically showing that her left-sided infiltrate is now bilateral. She has only taken 1 dose of the levofloxacin so far, yesterday. We ambulated her on room air, she did okay and stayed at or above 92%, but very generally weak. I discussed admission. She declines, I think this is okay as long as she has close outpatient follow-up. Discussed with Gordo Vásquez in her PCP office who will try to arrange that, as well as Dr. Barragan with cardiology who agrees with my plan to discharge her on Eliquis and Cardizem 120 CD. I am also prescribing her albuterol aerosol/inhaler to use as needed for dyspnea which she has not required here. History & Record Review Discussion w/independent historian: EMS personnel and Patient Additional record(s) reviewed:: Prior outpatient record (Chest x-ray) Lab Data Attestation: I reviewed the patient's lab results. Labs: Laboratory Results - last 24 hr 01/25/23 01/25/23 01/25/23 09:39 09:39 09:39 WBC 10.3 RBC 4.57 Hgb 14.4 Hct 43.9 MCV 96.1 MCH 31.5 MCHC 32.8 RDW Std Deviation 44.3 H RDW Coeff of Jm 12.6 Plt Count 210 MPV 9.9 Immature Gran % (Auto) 0.200 Neut % (Auto) 70.9 H Lymph % (Auto) 15.4 L Snyder % (Auto) 13.0 H Eos % (Auto) 0.1 Baso % (Auto) 0.4 Absolute Neuts (auto) 7.3 Absolute Lymphs (auto) 1.59 Nucleated RBC % 0 PT 15.6 H INR 1.2 APTT 37.5 H Sodium 134 L Potassium 3.4 L Chloride 100 Carbon Dioxide 24.0 Anion Gap 10 BUN 18 Creatinine 1.01 Estim Creat Clear Calc 38.65 Est GFR (MDRD) Af Amer 69 Est GFR (MDRD) Non-Af 57 L BUN/Creatinine Ratio 17.8 Glucose 142 H Lactic Acid Calcium 9.8 Total Bilirubin 1.10 H AST 115 H ALT 122 H Alkaline Phosphatase 121 H Troponin I High Sens 27 Total Protein 7.9 Albumin 3.1 L Globulin 4.8 H Albumin/Globulin Ratio 0.6 L Urine Color Urine Clarity Urine pH Ur Specific Greenock Urine Protein Urine Glucose (UA) Urine Ketones Urine Occult Blood Urine Nitrite Urine Bilirubin Urine Urobilinogen Ur Leukocyte Esterase Urine RBC Urine WBC Ur Squamous Epith Cells Urine Bacteria Urine Mucus 01/25/23 01/25/23 10:15 11:25 WBC RBC Hgb Hct MCV MCH MCHC RDW Std Deviation RDW Coeff of Jm Plt Count MPV Immature Gran % (Auto) Neut % (Auto) Lymph % (Auto) Snyder % (Auto) Eos % (Auto) Baso % (Auto) Absolute Neuts (auto) Absolute Lymphs (auto) Nucleated RBC % PT INR APTT Sodium Potassium Chloride Carbon Dioxide Anion Gap BUN Creatinine Estim Creat Clear Calc Est GFR (MDRD) Af Amer Est GFR (MDRD) Non-Af BUN/Creatinine Ratio Glucose Lactic Acid 1.7 Calcium Total Bilirubin AST ALT Alkaline Phosphatase Troponin I High Sens Total Protein Albumin Globulin Albumin/Globulin Ratio Urine Color Yellow Urine Clarity Sl. Cloudy Urine pH 6.0 Ur Specific Green[place] 1.020 Urine Protein 100 H Urine Glucose (UA) Normal Urine Ketones 150 A* Urine Occult Blood 25 H Urine Nitrite Negative Urine Bilirubin Negative Urine Urobilinogen Normal Ur Leukocyte Esterase 25 H Urine RBC 0 SEEN Urine WBC 0-5 SEEN Ur Squamous Epith Cells 0-5 SEEN Urine Bacteria 1+ Urine Mucus 0 SEEN Radiography Chest X-Ray - ED: 2 View, Read by ED Physician and Left Infiltrate Diagnostic Testing: Clinical Impression(s) from Imaging Studies Chest X-Ray 01/25/23 09:57 IMPRESSION: Progressive infiltrates at the lung bases as well as in the right lung apex. Electronically Signed: Guillermo Baires MD at 11:06 EDT , Rhythm Strip Rhythm Strip: aflutter Rate: 150 Ectopy: None EKG Initial EKG: Attestation: I personally reviewed and interpreted this EKG as follows: Interpretation: No Acute Injury Pattern and Atrial Flutter Prior: No Prior Follow-up EKG: Attestation: I personally reviewed and interpreted this EKG as follows: Interpretation: Sinus Rhythm and No Acute Injury Pattern Comments: after cardizem Prior: Changed Discharge Plan Triage Chief Complaint: Palpitations ED Provider: Ronny Smith Dx/Rx/DC Orders Clinical Impression: Bilateral pneumonia, Elevated liver enzymes, Generalized weakness, Paroxysmal atrial flutter Prescriptions: New diltiazem HCl [Cardizem CD] 120 mg capsule,extended release 24hr 120 mg PO Q24H Qty: 30 0RF Eliquis 5 mg tablet 5 mg PO BID Qty: 60 0RF albuterol sulfate [Ventolin HFA] 90 mcg/actuation HFA aerosol inhaler 1 - 2 puff inhalation Q4H PRN PRN (Reason: Wheezing) Qty: 1 0RF No Action alendronate 70 mg tablet 70 mg PO QWEEK Qty: 14 1RF Primary Care Provider: Adria Dos Santos Disposition Disposition: Home, Self Care
[2023-01-25 10:13] LABS: Absolute Lymphocyte Count 1.59 X10^3/uL (0.83-4.51); Absolute Neutrophil Count 7.3 X10^3/uL (2.0-7.7); Basophil# 0.04 X10^3/uL; Basophil% 0.4 % (0-1); Eosinophil# 0.01 X10^3/uL; Eosinophils% 0.1 % (0-5); Hematocrit 43.9 % (37-47); Hemoglobin 14.4 g/dL (12.0-15.0); Lymphocyte # 1.59 X10^3/ul (0.83-4.51); Lymphocyte % 15.4 % (19-41); Mean Corp Hgb Conc 32.8 g/dL (32-36); Mean Corpuscular Hgb 31.5 pg (27.0-32.0); Mean Corpuscular Volume 96.1 fL (81-99); Mean Platelet Vol. 9.9 fl (6.2-12.0); Monocyte# 1.34 X10^3/uL; NRBC Flagged by Analyzer 0 % (0-5); Neutrophil # 7.31 X10^3/uL (2.7-7.7); Neutrophil % 70.9 % (47-70); Platelet Count 210 K/mm3 (150-450); RBC Distribution Width CV 12.6 % (11.6-14.6); RBC Distribution Width SD 44.3 fl (35.1-43.9); Red Blood Count 4.57 M/mm3 (4.2-5.4); White Blood Count 10.3 K/mm3 (4.4-11.0)
[2023-01-25 10:26] LABS: International Normalized Ratio 1.2; Prothrombin Time (Protime)PT. 15.6 SECONDS (11.7-14.9)
[2023-01-25 10:27] LABS: Partial Thromboplast Time 37.5 Seconds (24.1-36.2)
[2023-01-25 10:36] LABS: ALB/GLOB Ratio 0.6 RATIO (0.9-2.4); AST(SGOT) 115 U/L (15-37); Alanine Aminotransfer ALT/SGPT 122 U/L (13-56); Albumin, Serum 3.1 g/dL (3.2-5.0); Alkaline Phosphatase 121 U/L (45-117); Anion Gap 10 (5-15); BUN 18 mg/dL (7-18); BUN/Creat Ratio 17.8 RATIO (10-20); Calcium,Total 9.8 mg/dL (8.5-10.1); Chloride 100 mmol/L (98-107); Creatinine, Serum 1.01 mg/dL (0.55-1.02); EST Glomerular Filtration Rate 57 mL/min (>60); Est Glom Filt Rate - Afr Amer 69 mL/min (>60); Estimated Creatinine Clearance 38.65 ml/min; Globulin 4.8 g/dL (2.2-4.2); Glucose 142 mg/dL (74-106); Potassium 3.4 mmol/L (3.5-5.1); Protein, Total 7.9 g/dL (6.4-8.2); Sodium Level 134 mmol/L (136-145); Troponin-I HS 27 pg/mL (3.0-54.0)
[2023-01-25] MEDS: dilTIAZem 25 MG/5 ML Vial 20 MG IV BOLUS (10:48)
[2023-01-25 10:59] LABS: Lactic Acid 1.7 mmol/L (0.4-1.9)
--- NOTE | 2023-01-25 11:06 | EKG12_ITS ---
Test Reason : REPEAT Blood Pressure : / mmHG Vent. Rate : 095 BPM Atrial Rate : 095 BPM P-R Int : 116 ms QRS Dur : 066 ms QT Int : 352 ms P-R-T Axes : 019 009 032 degrees QTc Int : 442 ms Normal sinus rhythm Low voltage QRS Borderline ECG Confirmed by MACRINA FELICIANO, JATINDER ([id number]), video effects editor YANG CARDENAS ([id number]) on 01/26/2023 9:15:08 AM Referred By: BB Confirmed By:JATINDER SCHRADER MD
[2023-01-25 11:34] LABS: Mucous, Urine 0 SEEN /hpf (<or=2+); Red Blood Cells-Urine 0 SEEN /hpf (0-5)
[2023-01-25 11:35] LABS: Color, Urine Yellow (Yellow); Glucose, Dipstick Normal (Normal); Leukocyte Esterase-Dipstick 25 /ul (Negative); Nitrite-Dipstick Negative (Negative); Occult Blood-Urine 25 /ul (Negative); Protein-Dipstick 100 mg/dl (Negative); Urine Bilirubin Dipstick Negative (Negative); Urine Clarity Sl. Cloudy (Clear); Urine Urobilinogen Normal (Normal)
[2023-01-25 11:36] LABS: Ketone-Dipstick 150 mg/dl (Negative)
[2023-01-25 11:41] LABS: Bacteria 1+ /hpf (None Seen); Squamous Epithelial Cells - UA 0-5 SEEN /hpf (5-10); White Blood Cells 0-5 SEEN /hpf (0-5)
== END 2023-01-25 14:17 | disposition home or self-care (01) ==
PROVIDERS: Emergency Provider Emergency Medicine; PCP Internal Medicine; Visit Provider Emergency Medicine
DX: I48.92 Unspecified atrial flutter (principal); J18.9 Pneumonia, unspecified organism; R53.1 Weakness; R74.8 Abnormal levels of other serum enzymes; M81.0 Age-related osteoporosis without current pathological fracture; E78.5 Hyperlipidemia, unspecified; I10 Essential (primary) hypertension
CPT/HCPCS: 71046; 80053; 81001; 83605; 84484; 85025; 85610; 85730; 87040; 87086; 87088; 87449; 93005; 96360; 99285; J7040; A4216

== ENCOUNTER → 2023-01-25 | Outpatient (CLI) | payer MEDICARE, SELFPAY ==
[2023-01-25 10:10] LABS: Mucous, Urine 0 SEEN /hpf (<or=2+); Red Blood Cells-Urine 0 SEEN /hpf (0-5)
[2023-01-25 10:26] LABS: Color, Urine Yellow (Yellow); Glucose, Dipstick Normal (Normal); Ketone-Dipstick 5 mg/dl (Negative); Leukocyte Esterase-Dipstick 100 /ul (Negative); Nitrite-Dipstick Negative (Negative); Occult Blood-Urine 25 /ul (Negative); Protein-Dipstick 30 mg/dl (Negative); Urine Bilirubin Dipstick Negative (Negative); Urine Clarity Cloudy (Clear); Urine Urobilinogen Normal (Normal)
[2023-01-25 10:41] LABS: Bacteria 4+ /hpf (None Seen); Squamous Epithelial Cells - UA 0-5 SEEN /hpf (5-10); White Blood Cells 0-5 SEEN /hpf (0-5)
== END | disposition home or self-care (01) ==
LOC: LABSPEC 09:47
PROVIDERS: PCP Internal Medicine; Referring Provider Physician Assistant; Visit Provider Physician Assistant
DX: R32 Unspecified urinary incontinence (principal)
CPT/HCPCS: 81001; 87086

== ENCOUNTER → 2023-02-03 | Outpatient (CLI) | payer MEDICARE, SELFPAY ==
[2023-02-03 15:28] LABS: Absolute Lymphocyte Count 0.77 X10^3/uL (0.83-4.51); Absolute Neutrophil Count 3.5 X10^3/uL (2.0-7.7); Basophil# 0.08 X10^3/uL; Basophil% 1.6 % (0-1); Eosinophil# 0.04 X10^3/uL; Eosinophils% 0.8 % (0-5); Hematocrit 41.3 % (37-47); Hemoglobin 13.4 g/dL (12.0-15.0); Lymphocyte # 0.77 X10^3/ul (0.83-4.51); Lymphocyte % 15.3 % (19-41); Mean Corp Hgb Conc 32.4 g/dL (32-36); Mean Corpuscular Hgb 31.3 pg (27.0-32.0); Mean Corpuscular Volume 96.5 fL (81-99); Mean Platelet Vol. 9.4 fl (6.2-12.0); Monocyte# 0.66 X10^3/uL; Monocyte% 13.1 % (0-10); NRBC Flagged by Analyzer 0 % (0-5); Neutrophil # 3.45 X10^3/uL (2.7-7.7); Neutrophil % 68.4 % (47-70); Platelet Count 321 K/mm3 (150-450); RBC Distribution Width CV 12.6 % (11.6-14.6); RBC Distribution Width SD 44.6 fl (35.1-43.9); Red Blood Count 4.28 M/mm3 (4.2-5.4)
[2023-02-03 16:08] LABS: ALB/GLOB Ratio 0.7 RATIO (0.9-2.4); AST(SGOT) 39 U/L (15-37); Alanine Aminotransfer ALT/SGPT 51 U/L (13-56); Albumin, Serum 3.2 g/dL (3.2-5.0); Alkaline Phosphatase 84 U/L (45-117); Anion Gap 5 (5-15); BUN 17 mg/dL (7-18); BUN/Creat Ratio 24.6 RATIO (10-20); Calcium,Total 9.6 mg/dL (8.5-10.1); Chloride 102 mmol/L (98-107); Creatinine, Serum 0.69 mg/dL (0.55-1.02); EST Glomerular Filtration Rate 88 mL/min (>60); Est Glom Filt Rate - Afr Amer 107 mL/min (>60); Globulin 4.3 g/dL (2.2-4.2); Glucose 111 mg/dL (74-106); Protein, Total 7.5 g/dL (6.4-8.2); Sodium Level 137 mmol/L (136-145); Troponin-I HS 5 pg/mL (3.0-54.0)
== END | disposition home or self-care (01) ==
LOC: BIMLAB 12:27
PROVIDERS: PCP Internal Medicine; Visit Provider Internal Medicine
DX: I48.92 Unspecified atrial flutter (principal); J12.82 Pneumonia due to coronavirus disease 2019; R74.8 Abnormal levels of other serum enzymes; U07.1 COVID-19
CPT/HCPCS: 36415; 80053; 84484; 85025

== ENCOUNTER → 2023-02-24 | Outpatient (CLI) | payer MEDICARE, SELFPAY ==
--- NOTE | 2023-02-24 12:05 | RAD_ITS ---
INDICATION: covid pneumonia follow up EXAMINATION/TECHNIQUE: X-RAY - XR Chest 2 Views COMPARISON: Earlier same date, 02/24/2023 FINDINGS: LIFE-SUPPORT AND LINES: 1. None HEART AND VESSELS: Cardiac silhouette is unchanged, no evidence congestive failure. LUNGS AND PLEURAL SPACES: Diffuse interstitial prominence at the lung bases without consolidation or effusion. Coarse interstitial and pleural thickening at the RIGHT apex. Pattern is stable. Remaining mid and upper lungs are moderately hyperexpanded. No pulmonary mass is noted. MEDIASTINUM AND HILAR REGIONS: No masses adenopathy noted. No areas of calcification. Visualized upper airway is normal in position. BONY ELEMENTS: No acute bony changes noted. RAD/Chest PA and Lateral IMPRESSION: 1. Diffuse interstitial infiltrate in the perihilar and infrahilar regions bilaterally, with negligible change. No consolidation, no effusion. 2. Stable chronic appearing changes at the RIGHT apex. Moderate hyperexpansion the remaining lung zones. Electronically Signed: Kalin Braswell MD at 20:29 EDT ,
[2023-02-24 14:27] LABS: Thyroid Stim Hormone (TSH) 2.68 uIU/mL (0.358-3.74)
== END | disposition home or self-care (01) ==
PROVIDERS: Internal Medicine Cardiovascular Disease; PCP Internal Medicine; Referring Provider Internal Medicine; Visit Provider Internal Medicine
DX: U07.1 COVID-19 (principal); J12.82 Pneumonia due to coronavirus disease 2019; E78.5 Hyperlipidemia, unspecified; R07.9 Chest pain, unspecified; R00.2 Palpitations; R06.09 Other forms of dyspnea
CPT/HCPCS: 36415; 71046; 84443

== ENCOUNTER → 2023-03-12 | Outpatient (CLI) | payer MEDICARE, SELFPAY ==
--- NOTE | 2023-03-12 07:05 | ECHOD_ITS ---
Reason For Study: Palpitations Procedure This was a 2D Doppler, Color Flow transthoracic echocardiogram. Exam performed in department. Left Ventricle Normal LV size. Left ventricular systolic function is hyperdynamic. The estimated ejection fraction is 70 %. Normal diastology for age. Right Ventricle Normal RV size. Normal systolic function. Atria The left and right atria are normal. Mitral Valve There is Mild focal posterior mitral annular calcification. The mitral valve is structurally normal. No prolapse or stenosis seen. Trivial mitral valve insufficiency. Tricuspid Valve Normal tricuspid valve. Right ventricular systolic pressure estimated to be 35 mmHg. Moderate (2+) tricuspid valve insufficiency. Aortic Valve Trisinus/trileaflet aortic valve. Mild focal aortic valve thickening. There is no aortic stenosis. Pulmonic Valve The pulmonic valve is not well visualized. Trivial pulmonic valve insufficiency. Great Vessels Normal aortic root. Pericardium/Pleural Fat pad versus small fibrinous pericardial effusion. MMode/2D Measurements & Calculations LVIDd: 3.7 cm IVSd: 0.96 cm Ao root diam: 3.4 cm LVIDs: 2.0 cm LVPWd: 0.89 cm RVDd: 3.5 cm FS: 44.7 % LAV(MOD-bp): 26.0 ml LVAd ap4: 17.9 cm2 LVAd ap2: 18.3 cm2 LAV(MOD-bp) Indexed: 17.5 ml/m2 LVLd ap4: 6.5 cm LVLd ap2: 6.5 cm LAV(MOD-sp2): 27.3 ml EDV(MOD-sp4): 40.7 ml EDV(MOD-sp2): 42.7 ml LAV(MOD-sp4): 22.4 ml EDV(sp4-el): 42.0 ml EDV(sp2-el): 43.8 ml LVAs ap4: 8.6 cm2 LVAs ap2: 8.1 cm2 LVLs ap4: 5.5 cm LVLs ap2: 5.4 cm ESV(MOD-sp4): 12.0 ml ESV(MOD-sp2): 11.3 ml ESV(sp4-el): 11.5 ml ESV(sp2-el): 10.2 ml EF(MOD-sp4): 70.5 % EF(MOD-sp2): 73.5 % EF(sp4-el): 72.6 % SV(MOD-sp4): 28.7 ml SV(MOD-sp2): 31.4 ml SV(sp4-el): 30.5 ml LA dimension(2D): 2.7 cm LA A4 area: 11.1 cm2 RA A4 area: 11.1 cm2 TAPSE: 2.6 cm Time Measurements MV dec time: 0.23 sec Doppler Measurements & Calculations MV E max quintin: 89.0 cm/sec Lat Peak E' Quintin: 9.9 cm/sec Med Peak E' Quintin: 6.5 cm/sec MV A max quintin: 94.5 cm/sec E/E' lat: 9.0 E/E' med: 13.8 MV E/A: 0.94 MV dec slope: 393.2 cm/sec2 Ao V2 max: 138.2 cm/sec LV V1 max: 122.4 cm/sec Ao max P.6 mmHg LV V1 max P.0 mmHg Ao V2 mean: 91.4 cm/sec Ao mean P.8 mmHg Ao V2 VTI: 29.6 cm PA V2 max: 86.4 cm/sec TR max quintin: 260.9 cm/sec TR max P.2 mmHg ECHO/Echo Complete Interpretation Summary The estimated ejection fraction is 70 %. Moderate (2+) tricuspid valve insufficiency. Fat pad versus small fibrinous pericardial effusion. Recommennd CT/MRI for furt her evaluation. Ordering Physician: Kwadwo Billings Referring Physician: Adria Dos Santos Performed By: Juana Lucero, KEVINCS, RVT
--- NOTE | 2023-03-22 16:38 | STRESSREP_ITS ---
Stress Test Report Date: 03/12/2023 Procedure: Pharmacologic stress nuclear imaging study Indications: Shortness of breath, chest pain Consent: Per the patient Procedure: The patient underwent pharmacologic (Regadenoson 0.4mg ) evaluation with a peak heart rate of 103 beats per minute (7%predicted maximal heart rate) and a peak blood pressure of 142/82 mmHg. The baseline ECG demonstrated nonspecific ST changes. The peak pharmacologic ECG demonstrated no diagnostic ischemic changes. There were no cardiac dysrhythmias pretest, during pharmacologic infusion, or recovery. There was no complaint of chest discomfort during pharmacologic infusion or recovery. The patient was injected with millicuries of technetium 99m Cardiolite and subsequently rest SPECT Cardiolite nuclear imaging was obtained in the horizontal long, vertical long, and short axis views. The patient underwent pharmacologic (Regadenoson) evaluation. The patient was injected with 11.2 millicuries of technetium 99m Cardiolite and subsequently stress SPECT Cardiolite nuclear imaging was obtained in the horizontal long, vertical long, and short axis views. A gated Cardiolite study at peak stress was obtained. The examination was stopped secondary to completion of protocol. Rest and stress SPECT Cardiolite nuclear imaging status post realignment, normalization, and attenuation correction demonstrate 33.6. There is end systolic thickening and brightening. The gated Cardiolite study demonstrates myocardial thickening and inward wall motion. The reported LVEF is 90%. Impression: 1. Pharmacologic (Regadenoson) evaluation 2. Peak pharmacologic ECG with no diagnostic ischemic changes. 3. There were no cardiac dysrhythmias pretest, during pharmacologic infusion, or recovery. 5. Rest and stress SPECT Cardiolite nuclear imaging demonstrate relative uniform tracer uptake and myocardial perfusion appearing within normal limits. 6. The gated Cardiolite study reports an LVEF of 90%. This note was generated with [employer] software. It may contain incorrect words, spelling, and punctuation that were not noted in checking the note before signing.
== END | disposition home or self-care (01) ==
PROVIDERS: PCP Internal Medicine; Referring Provider Internal Medicine Cardiovascular Disease; Visit Provider Internal Medicine Cardiovascular Disease
DX: R00.2 Palpitations (principal); R07.9 Chest pain, unspecified; R06.09 Other forms of dyspnea; R03.0 Elevated blood-pressure reading, without diagnosis of hypertension
CPT/HCPCS: 78452; 93017; 93306; A9500; A4216; J2785

== ENCOUNTER → 2023-03-30 | Outpatient (CLI) | payer MEDICARE, SELFPAY ==
--- NOTE | 2023-03-30 14:47 | CT_ITS ---
INDICATION: persistent pneumonia on XR EXAMINATION: CT CHEST WITHOUT CONTRAST - CT Chest W/O Contrast Injection TECHNIQUE: Helically acquired images were obtained of the chest. A radiation dose optimization technique was used for this scan. IV Contrast dosage and agent: None. RADIATION DOSAGE (If Supplied By Facility): CTDIvol = ( 5.16 ) mGy, DLP = ( 169.22 ) mGycm COMPARISON: None. FINDINGS: LUNGS, PLEURA AND LARGE AIRWAYS: Extensive bilateral lower lobe, lingular lobe and right middle lobe bronchiectasis with reticular nodular and interstitial consolidation consistent with chronic inflammatory process. Right lower lobe calcified granuloma measuring 4.9 mm. Additional ill-defined nodules throughout the lung youngblood, largest seen in the right upper lobe, image 59, series 4 measuring 1.2 cm. There is biapical pleural thickening. There is biapical subpleural scarring. No pneumothorax. THYROID: No thyroid lesions. HEART AND PERICARDIUM: Normal cardiac size with coronary artery calcifications. No pericardial effusion. VESSELS: Atherosclerosis of aorta with no aneurysm or dissection. MEDIASTINUM AND CODY: Calcified lymph nodes within the mediastinum and right hilar region suggestive of previous granulomatous infection. Esophagus is unremarkable. No hiatal hernia. UPPER ABDOMEN: No acute pathology. BONES: Scoliosis of thoracic spine with convexity to the right. Diffuse osteopenia with multilevel degenerative disease. No acute fracture. CT/Chest without Contrast IMPRESSION: Extensive multilevel chronic inflammatory processalong with multilobar bronchiectasis with possible superimposed multilobar pneumonitis. Multiple nodules within the bilateral lung youngblood which may indicate postinflammatory process although neoplasm cannot be excluded. Recommend follow-up CT chest in 6 months to document stability. Calcified lymph nodes with a right lower lobe calcified granuloma is consistent with sequela of previous myelomatous infection. Electronically Signed: Odilia Skaggs, at 19:10 EDT ,
== END | disposition home or self-care (01) ==
LOC: CT 14:45
PROVIDERS: PCP Internal Medicine; Referring Provider Internal Medicine; Visit Provider Internal Medicine
DX: R93.89 Abnormal findings on diagnostic imaging of other specified body structures (principal)
CPT/HCPCS: 71250

== ENCOUNTER → 2023-04-14 | Outpatient (CLI) | payer MEDICARE, SELFPAY ==
[2023-04-14 12:39] VITALS: PULSE 80; PULSE 81; PULSE 83; PULSE 92; PULSE 94; PULSE 95; O2SAT 93; O2SAT 95; O2SAT 96; O2SAT 97
--- NOTE | 2023-04-19 05:49 | PCM.PSN.6M ---
PSN 6 Minute Walk Test 6 Minute Walk Test 6 Minute Walk Test: 6 Minute Walk Test PSN:6-Minute Walk Test Start: 04/14/23 12:39 Freq: Status: Active Protocol: RESP.6MINW Document 04/14/23 12:39 MEGHAN (Rec: 04/14/23 12:43 MEGHAN [id number]) 6 Minute Walk Test Date Performed 04/14/23 Time Performed 12:30 Height 5 ft 3 in Weight: 48.988 kg Weight in Pounds 108.[address]: Yusef Ruiz Assistive device used: None Pre-test Oxygen Delivery Method Room Air Pulse Ox 95 Pulse Rate (60-100) 80 Dyspnea Elma Scale (0-10) 0 Exertion Elma Scale (6-20) 6 1st minute Oxygen Delivery Method Room Air Pulse Ox 93 Pulse Rate (60-100) 81 2nd minute Oxygen Delivery Method Room Air Pulse Ox 96 Pulse Rate (60-100) 92 3rd minute Oxygen Delivery Method Room Air Pulse Ox 96 Pulse Rate (60-100) 94 4th minute Oxygen Delivery Method Room Air Pulse Ox 95 Pulse Rate (60-100) 94 5th minute Oxygen Delivery Method Room Air Pulse Ox 97 Pulse Rate (60-100) 95 6th minute Oxygen Delivery Method Room Air Pulse Ox 96 Pulse Rate (60-100) 95 Dyspnea Elma Scale (0-10) 2 Exertion Elma Scale (6-20) 13 Post-test Oxygen Delivery Method Room Air Pulse Ox 96 Pulse Rate (60-100) 83 Full Laps Walked 16 Partial Lap, Number of Tiles Walked 25 Total Distance Walked (ft) 969 Interpretation Interpretation: Patient was able to ambulate 969 feet over the course of 6 minutes on room air with no assistive devices or breaks. Patient had an oxygen odell of 91% and no significant tachycardia during testing. These findings are consistent with a musculoskeletal limitation exercise tolerance. Recommendations Recommendations: No supplemental oxygen is indicated at this time.
== END | disposition home or self-care (01) ==
LOC: PSN 11:58
PROVIDERS: PCP Internal Medicine; Referring Provider Internal Medicine Critical Care Medicine; Visit Provider Internal Medicine Critical Care Medicine
DX: J47.9 Bronchiectasis, uncomplicated (principal)
CPT/HCPCS: 87015; 87070; 87077; 87101; 87116; 87205; 87206; 94618

== ENCOUNTER → 2023-04-15 | Outpatient (CLI) | payer MEDICARE, SELFPAY ==
--- NOTE | 2023-04-19 05:40 | PFTCOMP ---
COMPLETE PULMONARY FUNCTION TEST INTERPRETATION Brief HPI: Patient is a 72-year-old female, currently under the care of myself, who presents to [facility] for complete pulmonary function tests secondary to diagnosis of bronchiectasis. Respiratory therapist reports good effort and reproducible results. Interpretation: Forced expiration spirometry shows no large airways obstructive ventilatory defect with an FEV1 of 76% predicted. There is no significant bronchodilator response by strict ATS criteria. Spirograms are of good quality and plateau slowly, indicating slowly emptying areas of the lungs. The respiratory flow volume loop shows decreased expiratory flow rates at high lung volumes consistent with small airways obstruction. Lung volumes by body plethysmography show a normal total lung capacity at 3.88 L, 81% predicted. All other lung volumes are within normal limits. Diffusion capacity by carbon monoxide is at the lower limit of normal at 75% predicted. The airway resistance is normal. No previous pulmonary function tests were available for review. Impression: These pulmonary function tests are within normal limits, but do show findings consistent with possible small airways obstruction
== END | disposition home or self-care (01) ==
PROVIDERS: PCP Internal Medicine; Referring Provider Internal Medicine Critical Care Medicine; Visit Provider Internal Medicine Critical Care Medicine
DX: J47.9 Bronchiectasis, uncomplicated (principal)
CPT/HCPCS: 94060; 94726; 94729

== ENCOUNTER → 2023-04-22 | Outpatient (CLI) | payer MEDICARE, SELFPAY ==
--- NOTE | 2023-04-22 14:46 | CT_ITS ---
STUDY: CT CHEST WITH CONTRAST REASON FOR EXAM: Female, 72 years old. EVAL pericardial effusion vs fat pad. Continued shortness of breath. RADIATION DOSAGE (If Supplied By Facility): CTDIvol = ( 7.17 ) mGy, DLP = ( 171.23 ) mGycm TECHNIQUE: Transaxial imaging was performed following intravenous administration of IV 75mL [id number]-370. Multiplanar coronal and sagittal images were reformatted. Individualized dose optimization techniques were used for this CT. COMPARISON: Comparison is made with prior study dated March 30, 2023. FINDINGS: CHEST Hyperinflation. Emphysematous changes. There is evidence of a bronchiectasis with the scarring and reticular nodule and interstitial infiltrates in keeping with a chronic scarring. Once again, is a 4.9 mm calcified granuloma in the right lower lobe. Stable scarring at the lung apices. Stable noncalcified 1.2 cm nodule in the anterior aspect of the left upper lobe as seen on axial image #57. There is no demonstrated pleural abnormality. There are calcifications of the coronary arteries. No evidence of pericardial effusion. Normal mediastinum. Normal hilar regions. Normal unenhanced pulmonary arteries. Normal aorta arch and descending thoracic aorta. There are multi-level degenerative changes of the thoracic spine. Increased kyphosis. There is no demonstrated abnormality of the visualized upper abdomen. CT/Chest WITH Contrast IMPRESSION: Stable examination. Electronically Signed: Guillermo Baires MD at 13:13 EDT ,
[2023-04-22 15:42] LABS: CREATININE FINGERSTICK < 0.9 mg/dL (0.55-1.02); EGFR FINGERSTICK > 60.0000 mL/min (>60)
== END | disposition home or self-care (01) ==
PROVIDERS: PCP Internal Medicine; Referring Provider Internal Medicine Cardiovascular Disease; Visit Provider Internal Medicine Cardiovascular Disease
DX: I48.92 Unspecified atrial flutter (principal); R06.09 Other forms of dyspnea; R07.9 Chest pain, unspecified; R03.0 Elevated blood-pressure reading, without diagnosis of hypertension; R00.2 Palpitations
CPT/HCPCS: 71260; Q9967; A4216

== ENCOUNTER → 2023-05-20 | Outpatient (CLI) | payer MEDICARE, SELFPAY ==
[2023-05-20 17:19] LABS: Anion Gap 5 (5-15); BUN 19 mg/dL (7-18); BUN/Creat Ratio 30.7 RATIO (10-20); Calcium,Total 9.6 mg/dL (8.5-10.1); Chloride 103 mmol/L (98-107); Creatinine, Serum 0.62 mg/dL (0.55-1.02); EST Glomerular Filtration Rate 100 mL/min (>60); Est Glom Filt Rate - Afr Amer 121 mL/min (>60); Glucose 114 mg/dL (74-106); Potassium 4.1 mmol/L (3.5-5.1); Sodium Level 139 mmol/L (136-145)
== END | disposition home or self-care (01) ==
LOC: BIMLAB 15:50
PROVIDERS: PCP Internal Medicine; Referring Provider Internal Medicine; Visit Provider Internal Medicine
DX: I10 Essential (primary) hypertension (principal)
CPT/HCPCS: 36415; 80048

== ENCOUNTER → 2023-05-26 | Outpatient (CLI) | payer MEDICARE, SELFPAY | END | disposition home or self-care (01) | LOC: LAB 16:01 | PROVIDERS: PCP Internal Medicine; Referring Provider Internal Medicine Infectious Disease; Visit Provider Internal Medicine Infectious Disease | DX: B99.8 Other infectious disease (principal) | CPT/HCPCS: 87015; 87116; 87206 ==

== ENCOUNTER 2023-08-04 12:12 | Day surgery (SDC) | payer MEDICARE, SELFPAY ==
--- NOTE | 2023-08-04 | FLU_PTH ---
PATHOLOGY RESULTS PATIENT: OLAYINKA CROW LOC: EN U#:[id number] AGE/SX: 72/F ROOM: RE08/04/[address]: Dr. Yusef Ruiz MD : 1950 BED: DIS: 08/04/2023 SPEC #: [id number] RECD: 08/05/23 07:10 STATUS: JAMMIE REWellington #: [id number] DOMONIQUE: 08/04/23 00:[address]: Yusef Ruiz DEPT: CYTOLOGY RECD BY: Alyse Rodriguez ENTERED: 08/05/23 07:13 SP TYPE: Fluid OTHR DR: Dr. Adria Dos Santos MD Tissues: Bronchus, NOS Bronchus, NOS Procedures: Special Stain Group II Special Stain Group I Surgery Specimen Level IV AFB Stain (control) GMS Stain (control) Cytospin Fluid HEADER OPERATION: Bronchoscopy (MAC) with washing and BAL PRE-OP DIAGNOSIS: Concern for MAC TISSUE SUBMITTED: A - Washings, B - BAL DIAGNOSIS CYTOLOGY A. Washing fluid (cytospin and cell block): Negative for malignant cells. See comment. B. BAL fluid (cytospin and cell block): Negative for malignant cells. See comment. JUAN MANUEL:cecy 08/06/2023 COMMENT A & B. Special stains for acid fast bacilli and fungi are negative for organisms; matched controls are appropriate. CYTOLOGY STUDY Slides are reviewed. CYTOLOGY GROSS A - Received is 10 ml of green-yellow cloudy fluid labeled with the patient's name and and designated per the requisition as washings. Submitted for cytology preparation including cell block. B - Received is 1 ml of clear fluid labeled with the patient's name and and designated per the requisition as BAL. Submitted for cytology preparation including cell block. / cecy 08/05/2023 TC:5 CPT: 64895 x2, 09757 x2, 96068 x4
[2023-08-04 12:42] VITALS: BP 126/94; PULSE 77; RESP 16; TEMP 37.3; O2SAT 97; BMI 19.1
[2023-08-04] MEDS: Lactated Ringers 1,000 ML 15 ML IV (13:00)
--- NOTE | 2023-08-04 13:27 | PCM.HP.BLA ---
History and Physical Date of Admission: 08/04/23 Patient seen and examined prior to the procedure. No change in history outside of some nasal congestion with mild epistaxis. Patient is not reporting any current fevers or chills. Patient has had no change in her respiratory status. Did discuss the expected procedure. Answered all questions. Respiratory isolation precautions were taken by all staff prior to the procedure. 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 Patient does have bronchiectasis, fibrotic changes and a positive AFB, so from my perspective would qualify as MAC pneumonitis. Did discuss with the patient about doing a bronchoscopy with BAL for confirmation. Patient is unclear on whether she would want to have the procedure completed. After extensive discussion, patient will have a CT without contrast and a PFT completed in 3 months. If patient has significant worsening, bronchoscopy with BAL would be recommended. If patient's status is unchanged, could follow with PFT at 6-month intervals to monitor for stability with CT scan on decline. If bronchoscopy did not show AFB on BAL, workup with autoimmune would be appropriate. Obtain CT chest and PFT prior to next visit. Plan as above. Plan Details Follow Up: 3 Months (CSM) HPI 3 M FU Details: Patient is a 72-year-old female, currently under the care of Dr. Dos Santos, who presents for evaluation secondary to routine follow-up. Since last visit, patient denies any ER visits, hospitalizations or prednisone burst. Patient does state that she was seen by infectious disease. Infectious disease was reluctant to start a course of therapy on 1 expectorated sputum. Patient has had 2 repeat sputum's that did not show any AFB, so patient has not been started on therapy. Additional information was also obtained from patient's sister, who was present during the appointment. Patient reports she has had no real change subjectively since her last visit. Patient is not currently on any inhalers. Patient denies any chest pain. Patient does have a cough that is intermittently productive. Patient denies any palpitations or lower extremity edema. Patient does have dyspnea on exertion, but does not believe it has been progressing. No hemoptysis has been reported. Patient is not reporting any seasonal allergies. Patient does believe the weather is kind of helped her breathing a little bit as it is more temperate. Review of systems otherwise negative from a constitutional, HEENT, respiratory, cardiovascular, GI, genitourinary, musculoskeletal, skin, neurologic, psychiatric and hematologic system unless stated above. Intake Vital Signs 04/08/2305:54 05/20/2315:05 07/27/2310:48 07/27/2310:50 Height 5 ft 4 in 5 ft 3 in 5 ft 3 in 5 ft 3 in Weight: 50.065 kg BMI 19.5 BP 132/75 H Blood Pressure Location Lt brachial Position Sitting Respiration 18 Pulse 74 Pulse Source Monitor Temp 36.6 C Temperature Source Temporal Artery Pulse Oximetry (%) 98 Oxygen Delivery Method room air Intake Visit Reasons: 3 M FU Chief Complaint: FU Chronic Conditions. Several concerns. Accompanied by: Friend Is patient in pain?: No Allergies cefaclor Allergy (Intermediate, Verified 07/27/23 10:43) Rashtetracycline Allergy (Intermediate, Verified 07/27/23 10:43) sores in mouth Medications albuterol sulfate 90 mcg/actuation aerosol inhaler (Ventolin HFA) 1 - 2 puff inhalation Q4H PRN PRN Wheezing ##1 01/25/23 [Rx Confirmed 07/27/23] ascorbic acid (vitamin C) 500 mg capsule 1,000 mg PO DAILY 02/24/23 [History Confirmed 07/27/23] cyanocobalamin (vitamin B-12) 1,000 mcg capsule 1,000 mcg PO DAILY 02/24/23 [History Confirmed 07/27/23] lysine 500 mg tablet 500 mg PO DAILY 02/24/23 [History Confirmed 07/27/23] mygabfmj-qjf-rnbiz ac 400 mcg-calcium carb 500 mg-vit K1 20 mcg tablet (Women's 50 Plus Multivitamin) 1 tab PO .QOD 02/24/23 [History Confirmed 07/27/23] omega-3 fatty acids 1,000 mg capsule 1,000 mg PO DAILY 02/24/23 [History Confirmed 07/27/23] peg 400-propylene glycol 0.4 %-0.3 % eye drops (Systane Ultra) 1 drp ophthalmic (eye) BID-QID PRN 02/24/23 [History Confirmed 07/27/23] diltiazem HCl 120 mg capsule,extended release 24 hr (Cardizem CD) 120 mg PO Q24H #30 caps 02/25/23 [Rx Confirmed 07/27/23] apixaban 5 mg tablet (Eliquis) 5 mg PO BID #180 tabs 03/24/23 [Rx Confirmed 07/27/23] Handicap Placard #1 ea 05/20/23 [Rx Confirmed 07/27/23] alendronate 70 mg tablet 70 mg PO QWEEK #14 tabs 05/26/23 [Rx Confirmed 07/27/23] PFSH Medical History Abdominal discomfort Acute bronchitis Balance problem Callus of foot Change in skin mole Chest pain Contact with and (suspected) exposure to other viral communicable diseases Dermatitis Dry skin dermatitis Dyspnea on exertion Elevated blood pressure reading in office without diagnosis of hypertension Elevated liver enzymes Flu vaccine need GERD (gastroesophageal reflux disease) GI problem Health care maintenance Hemorrhoids History of back problems Hordeolum of left lower eyelid Hx of migraine headaches Hyperlipidemia Hypertension infected sebaceous cyst left thigh Left buttock abscess Lung nodules Osteoporosis Osteoporosis Palpitations Pneumonia due to COVID-19 virus Right ankle swelling Scoliosis Seasonal allergies Sebaceous cyst SOB (shortness of breath) Tinea corporis Tinnitus Urinary incontinence Venous insufficiency of both lower extremities Vision problem Vitamin deficiency Winged scapula of right side Surgical History History of removal of cyst history ORIF right little finger Family History Mother Heart disease Arthritis Hypertension Kidney disease Skin cancer Thyroid disorderFather Heart disease Hypertension CVA (cerebral vascular accident)Brother Heart disease HypertensionGrandfather Alcohol abuse Arthritis Pancreatic cancerSister PVC (premature ventricular contraction) CAD (coronary artery disease)Other Severe allergy Social History housing: other details: mobile home Smoking Status: Never smoker alcohol intake: current alcohol intake frequency: holidays/special occasions only substance use type: does not use caffeine: Yes (chocolate) what type of physical activity do you participate in: walking frequency: 1-2 times per week Exam Const Constitutional: Positive conversant, cooperative, in no acute respiratory distress, well developed, well nourished, good hygiene and frail appearing; Negative wearing supplemental oxygen or ill appearing Head Head: Yes normocephalic, Yes atraumatic and No cyanosis of lips/distal nose Eyes Eye: Positive clear conjunctiva; Negative nystagmus, scleral abnormality or cataract present Ears Ear: Positive hearing normal and external ears normal; Negative hard of hearing Nose Nose: Yes other (Mask in place) Mouth Mallampati Score: II: Mallampati Score Neck Neck: Positive normal visual inspection, full ROM and trachea midline; Negative lymphadenopathy or JVD Chest Wall Chest: Positive normal inspection of the chest and symmetric chest movement; Negative crepitus or tenderness Resp lung sounds: Positive clear to auscultation, good air exchange and normal expiratory time; Negative wheezes, wheeze present on forced exhalation, rhonchi, rales, dullness or use of accessory muscles Cardio Cardiac: Positive regular rate, regular rhythm, S1 normal and S2 normal; Negative murmur, rub or gallop GI GI: Positive normal to inspection Musc Musculoskeletal: Positive kyphosis and scoliosis; Negative steady gait (Slightly shuffling gait) Skin Pulmonary Skin Exam: Positive intact, dermal atrophy and other (Pale); Negative lesion, rash, ulcers or erythema Pulses Pulse: Yes radial pulses present Extremities Extremities: Yes capillary refill normal, Yes clubbing (Mild), No cyanosis and No edema Neuro Neurologic: Yes no focal neuro deficits, Yes conversant, Yes cooperative, Yes normal cognition, Yes normal coordination, Yes normal concentration and Yes understands questions Lymph Lymphatic: No lymphadenopathy Psych Appearance: Positive grossly normal Mental Status: Positive mental status grossly normal Mood: Positive anxious mood Affect: Positive anxious affect Diagnoses Pulmonary Mycobacterium avium complex (MAC) infection A31.0 Bronchiectasis without complication J47.9 Bronchiectasis type: uncomplicated
[2023-08-04] MEDS: Lidocaine Jelly 2% 20 ML Syringe (URO-JET) 1 APPLIC (13:42)
[2023-08-04 14:00] VITALS: BP 105/68; BP 126/94; PULSE 81; RESP 16; TEMP 36.4; O2SAT 99
[2023-08-04 14:05] VITALS: BP 101/64; BP 126/94; PULSE 75; RESP 16; O2SAT 96
[2023-08-04 14:10] VITALS: BP 126/94; BP 133/63; PULSE 84; RESP 16; O2SAT 94
[2023-08-04 14:11] LABS: Cytology, Body Fluid / CSF SEE PATHOLOGY REPORT
[2023-08-04 14:13] LABS: Cytology, Body Fluid / CSF SEE PATHOLOGY REPORT
[2023-08-04 14:15] VITALS: BP 103/63; BP 126/94; PULSE 73; RESP 16; TEMP 36.8; O2SAT 92
--- NOTE | 2023-08-04 14:25 | OP.BRONCH_ITS ---
Patient Name: Ania Araiza Procedure Date: 08/04/2023 1:18 PM Date of : 1950 Age: 72 Procedure: Bronchoscopy Indications: Chronic cough with abnormal CT Providers: Yusef Ruiz MD Complications: No immediate complications. Estimated blood loss: None Procedure: Pre-Anesthesia Assessment: - A History and Physical has been performed. The patient's medications, allergies and sensitivities have been reviewed. - The risks and benefits of the procedure and the sedation options and risks were discussed with the patient. All questions were answered and informed consent was obtained. - Pre-procedure physical examination revealed no contraindications to sedation. - Using IV propofol under the supervision of an golf course assistant was determined to be medically necessary for this procedure based on review of the patient's medical history, medications, and prior anesthesia history. After I obtained informed consent, the scope was passed under direct vision. Throughout the procedure, the patient's blood pressure, pulse, and oxygen saturations were monitored continuously. The bronchoscope was introduced through the mouth and advanced to the tracheobronchial tree. The procedure was accomplished without difficulty. Findings: Bilateral Lung Abnormalities: An area of friable mucosa was found throughout the tracheobronchial tree. An area of chronically inflamed mucosa was found throughout the tracheobronchial tree. Copious, mucopurulent, thin secretions were found throughout the tracheobronchial tree. They were partially obstructing (about 20% obstructed) the airway. Washings were obtained in the entire tracheobronchial tree and sent for cell count, bacterial culture, viral smears & culture, and fungal & AFB analysis and bacterial, AFB, fungal and viral analysis. The return was cloudy. Multiple specimens were obtained and pooled into one specimen, which was sent for analysis. The bronchoscope was advanced until wedged at the desired location for bronchoalveolar lavage. BAL was performed in the lingula of the lung and sent for cell count, bacterial culture, viral smears & culture, and fungal & AFB analysis and bacterial, AFB, fungal and viral analysis. 60 mL of fluid were instilled. 20 mL were returned. The return was cloudy. There were no mucoid plugs in the return fluid. Impression: - Chronic cough with abnormal CT - Friable mucosa was found throughout the tracheobronchial tree. - Chronic mucosal inflammation was visualized throughout the tracheobronchial tree. - Copious, mucopurulent, thin secretions were found throughout the tracheobronchial tree. - Washings were obtained. - Bronchoalveolar lavage was performed. Recommendation: - The patient will be observed post-procedure, until all discharge criteria are met. - Await BAL and washing results. - The patient was advised to call or return to the clinic if there are signs or symptoms suggesting a complication/adverse reaction from the procedure. Procedure Code(s): --- Professional --- 99759, Bronchoscopy, rigid or flexible, including fluoroscopic guidance, when performed; with bronchial alveolar lavage Diagnosis Code(s): --- Professional --- R05.3, Chronic cough R91.8, Other nonspecific abnormal finding of lung field J98.09, Other diseases of bronchus, not elsewhere classified J42, Unspecified chronic bronchitis R09.89, Other specified symptoms and signs involving the circulatory and respiratory systems CPT copyright 2021 [employer]. All rights reserved. The codes documented in this report are preliminary and upon medical records coder review may be revised to meet current compliance requirements. MD Yusef Ch MD 08/04/2023 2:24:58 PM This report has been signed electronically. Number of Addenda: 0 Note Initiated On: 08/04/2023 1:18 PM
[2023-08-04 14:26] VITALS: BP 126/94
[2023-08-04 15:43] LABS: Appearance/Body Fluid CLEAR; Color/Body Fluid COLORLESS; Lymphocytes 4 %; Mesothelial Cells 1 %; Monocytes 5 %; Neutrophil (Segs) 90 %; Source- Body Fluid BRONCHIAL LAVAGE
[2023-08-04 15:44] LABS: Body Fluid QC Type(s) BF1Q; Red Cell Count/Body Fluid 1570 /mm3; White Blood Count/Body Fluid 235 /mm3
[2023-08-04 15:49] LABS: Lymphocytes 4 %; Mesothelial Cells 1 %; Monocytes 4 %; Neutrophil (Segs) 91 %; Source- Body Fluid BRONCHIAL LAVAGE
[2023-08-04 15:50] LABS: Appearance/Body Fluid TURBID; Color/Body Fluid YELLOW; Red Cell Count/Body Fluid 2400 /mm3; White Blood Count/Body Fluid 14700 /mm3
[2023-08-04 15:51] LABS: Body Fluid QC Type(s) BF1Q
[2023-08-06 10:40] LABS: Pathologist Comment/Body Fluid Reviewed
[2023-08-06 10:41] LABS: Pathologist Comment/Body Fluid Reviewed
== END 2023-08-04 14:54 | disposition home or self-care (01) ==
PROVIDERS: PCP Internal Medicine; Referring Provider Internal Medicine Critical Care Medicine; Visit Provider Internal Medicine Critical Care Medicine
PROC: 0BJ08ZZ Inspection of Tracheobronchial Tree, Via Natural or Artificial Opening Endoscopic (ICD-10-PCS; CPT 31622; principal; 2023-08-04 13:15)
DX: J47.9 Bronchiectasis, uncomplicated (principal); A31.0 Pulmonary mycobacterial infection; J42 Unspecified chronic bronchitis; R05.3 Chronic cough; I10 Essential (primary) hypertension; E78.5 Hyperlipidemia, unspecified; Z86.16 Personal history of COVID-19; R91.8 Other nonspecific abnormal finding of lung field; J98.09 Other diseases of bronchus, not elsewhere classified; R09.89 Other specified symptoms and signs involving the circulatory and respiratory systems
CPT/HCPCS: 31624; 87015; 87070; 87116; 87205; 87206; 87252; 88108; 88305; 88312; 88313; 89050; J7120; J2405

== ENCOUNTER 2023-10-26 14:29 | Outpatient (CLI) | payer MEDICARE, SELFPAY | END 2023-10-26 23:59 | disposition home or self-care (01) | LOC: PSN 14:29 | PROVIDERS: PCP Internal Medicine; Referring Provider Nurse Practitioner Acute Care; Visit Provider Nurse Practitioner Acute Care | DX: J47.9 Bronchiectasis, uncomplicated (principal) | CPT/HCPCS: 94667 ==

== ENCOUNTER → 2023-11-19 | Outpatient (CLI) | payer MEDICARE, SELFPAY ==
[2023-11-19 16:29] LABS: Absolute Lymphocyte Count 1.08 X10^3/uL (0.83-4.51); Absolute Neutrophil Count 4.4 X10^3/uL (2.0-7.7); Basophil# 0.07 X10^3/uL; Basophil% 1.1 % (0-1); Eosinophil# 0.03 X10^3/uL; Eosinophils% 0.5 % (0-5); Hematocrit 44.8 % (37-47); Hemoglobin 14.1 g/dL (12.0-15.0); Lymphocyte # 1.08 X10^3/ul (0.83-4.51); Lymphocyte % 17.4 % (19-41); Mean Corp Hgb Conc 31.5 g/dL (32-36); Mean Corpuscular Hgb 31.1 pg (27.0-32.0); Mean Corpuscular Volume 98.7 fL (81-99); Mean Platelet Vol. 9.9 fl (6.2-12.0); Monocyte# 0.63 X10^3/uL; Monocyte% 10.1 % (0-10); NRBC Flagged by Analyzer 0 % (0-5); Neutrophil # 4.38 X10^3/uL (2.7-7.7); Neutrophil % 70.4 % (47-70); Platelet Count 230 K/mm3 (150-450); RBC Distribution Width CV 12.5 % (11.6-14.6); RBC Distribution Width SD 45.4 fl (35.1-43.9); Red Blood Count 4.54 M/mm3 (4.2-5.4); White Blood Count 6.2 K/mm3 (4.4-11.0)
[2023-11-19 16:43] LABS: ALB/GLOB Ratio 0.9 RATIO (0.9-2.4); AST(SGOT) 24 U/L (15-37); Alanine Aminotransfer ALT/SGPT 31 U/L (13-56); Albumin, Serum 3.6 g/dL (3.2-5.0); Alkaline Phosphatase 77 U/L (45-117); Anion Gap 2 (5-15); BUN 20 mg/dL (7-18); BUN/Creat Ratio 29.2 RATIO (10-20); Calcium,Total 9.7 mg/dL (8.5-10.1); Chloride 103 mmol/L (98-107); Creatinine, Serum 0.68 mg/dL (0.55-1.02); EST Glomerular Filtration Rate 89 mL/min (>60); Est Glom Filt Rate - Afr Amer 108 mL/min (>60); Glucose 107 mg/dL (74-106); Protein, Total 7.6 g/dL (6.4-8.2); Sodium Level 139 mmol/L (136-145); Vitamin D,25 Hydroxy 65.2 ng/mL
[2023-11-19 16:49] LABS: Cholesterol 222 mg/dL (200); High Density Lipoprotein 86 mg/dL; Triglycerides 53 mg/dL; Very Low Density Lipoprotein 11 mg/dL (5-40)
== END | disposition home or self-care (01) ==
LOC: BIMLAB 15:05
PROVIDERS: PCP Internal Medicine; Visit Provider Internal Medicine
DX: M81.0 Age-related osteoporosis without current pathological fracture (principal); K21.9 Gastro-esophageal reflux disease without esophagitis; I10 Essential (primary) hypertension
CPT/HCPCS: 36415; 80053; 80061; 82306; 85025

== ENCOUNTER → 2023-12-07 | Outpatient (CLI) | payer MEDICARE, SELFPAY ==
--- NOTE | 2023-12-07 13:35 | BI_ITS ---
MAMMOGRAPHY - BILATERAL SCREENING REASON FOR EXAM: Female, 73 years old. Routine annual screening examination. PERTINENT HISTORY: Non-contributory. TECHNIQUE: Digital bilateral breast azalia (3D mammographic acquisition) in the CC and MLO projections. 2-D mediolateral oblique (MLO) and craniocaudad (CC) views of both breasts were obtained. CAD: Full Field Digital Mammography with Computer Added Detection was performed. COMPARISON: Comparison is made with prior study May 29, 2022 and October 15, 2020. FINDINGS: Breast Composition: The breasts are extremely dense, which lowers the sensitivity of mammography. There are no dominant masses or suspicious calcifications. No other significant abnormalities are identified. There has been no significant change since the prior study. BI/SCRN MAMM (CAD)W/AZALIA BILAT IMPRESSION: Stable bilateral screening mammogram. Yearly follow-up mammogram recommended. (A) ASSESSMENT CATEGORY: BIRADS Category 1: Negative. A letter regarding these results will be sent to the patient by the facility within 30 days. Approximately 10% of breast cancers are not detected by mammography. A normal mammogram should not delay biopsy of a clinically suspicious abnormality. [id number] Electronically Signed: Guillermo Baires MD at 14:23 EDT ,
== END | disposition home or self-care (01) ==
LOC: OPBI 13:35
PROVIDERS: PCP Internal Medicine; Referring Provider Internal Medicine; Visit Provider Internal Medicine
DX: Z12.31 Encounter for screening mammogram for malignant neoplasm of breast (principal)
CPT/HCPCS: 77063; 77067

== ENCOUNTER → 2024-01-12 | Outpatient (CLI) | payer MEDICARE, SELFPAY | END | disposition home or self-care (01) | LOC: LABSPEC 16:19 | PROVIDERS: PCP Internal Medicine; Referring Provider Physician Assistant; Visit Provider Physician Assistant | DX: R32 Unspecified urinary incontinence (principal) | CPT/HCPCS: 87086; 87088 ==

== ENCOUNTER → 2024-01-13 | Outpatient (CLI) | payer MEDICARE, SELFPAY ==
--- NOTE | 2024-01-13 14:17 | RAD_ITS ---
INDICATION: rales EXAMINATION/TECHNIQUE: X-RAY - XR Chest 2 Views COMPARISON: No relevant prior comparison study available FINDINGS: LINES/DEVICES: None. LUNGS: The lungs are hyperexpanded. Prominent markings throughout both lungs with bronchial wall thickening. No definite pleural effusion. No pneumothorax. MEDIASTINUM AND CARDIOVASCULAR STRUCTURES: Cardiac silhouette not enlarged. Central airways and mediastinal contour are unremarkable. BONES AND SOFT TISSUES: No acute abnormality. Scoliotic curvature of the spine. RAD/Chest PA and Lateral IMPRESSION: Emphysema is suspected. Prominent markings in the lungs which could be acute or chronic. Considerations include edema or a small airways process. Electronically Signed: Paulo Jc MD at 22:13 EDT ,
[2024-01-13 15:45] LABS: Absolute Lymphocyte Count 1.09 X10^3/uL (0.83-4.51); Absolute Neutrophil Count 3.7 X10^3/uL (2.0-7.7); Basophil# 0.07 X10^3/uL; Basophil% 1.2 % (0-1); Eosinophil# 0.03 X10^3/uL; Eosinophils% 0.5 % (0-5); Hematocrit 45.5 % (37-47); Hemoglobin 14.1 g/dL (12.0-15.0); Lymphocyte # 1.09 X10^3/ul (0.83-4.51); Lymphocyte % 19.4 % (19-41); Mean Corpuscular Hgb 30.4 pg (27.0-32.0); Mean Corpuscular Volume 98.1 fL (81-99); Mean Platelet Vol. 9.5 fl (6.2-12.0); Monocyte# 0.74 X10^3/uL; Monocyte% 13.1 % (0-10); NRBC Flagged by Analyzer 0 % (0-5); Neutrophil # 3.69 X10^3/uL (2.7-7.7); Neutrophil % 65.6 % (47-70); Platelet Count 248 K/mm3 (150-450); RBC Distribution Width CV 12.1 % (11.6-14.6); RBC Distribution Width SD 43.8 fl (35.1-43.9); Red Blood Count 4.64 M/mm3 (4.2-5.4); White Blood Count 5.6 K/mm3 (4.4-11.0)
== END | disposition home or self-care (01) ==
PROVIDERS: PCP Internal Medicine; Referring Provider Physician Assistant; Visit Provider Physician Assistant
DX: R50.9 Fever, unspecified (principal); R05.9 Cough, unspecified
CPT/HCPCS: 36415; 71046; 85025; 87631

== ENCOUNTER 2024-03-29 08:04 | Emergency (ER) | payer MEDICARE, SELFPAY ==
[2024-03-29] VITALS (7 sets, daily range): BP systolic 101–143; BP diastolic 69–96; PULSE 79–141; RESP 16–23; TEMP 36.1–36.6; O2SAT 94–99; BMI 18.4
--- NOTE | 2024-03-29 08:09 | ED.RN ---
CAlled for EKG
--- NOTE | 2024-03-29 08:09 | ED.VIS.CHEST ---
HPI History of Present Illness Chief Complaint: Palpitations [facility] Medical History Muscle weakness Wears glasses Post-menopausal Cancer Depression Anxiety Arthritis Easy bruising Back pain Syncope Gastric reflux Non-smoker Shortness of breath on exertion Leg cramps Hypertension History of echocardiogram History of stress test History of atrial fibrillation Cardiology follow-up encounter History of Mohs micrographic surgery for skin cancer Dermatitis Pulmonary Mycobacterium avium complex (MAC) infection Bronchiectasis Lung nodules Tinea corporis Elevated blood pressure reading in office without diagnosis of hypertension Chest pain Dyspnea on exertion Elevated liver enzymes SOB (shortness of breath) Palpitations Pneumonia due to COVID-19 virus Urinary incontinence Contact with and (suspected) exposure to other viral communicable diseases Acute bronchitis Abdominal discomfort Health care maintenance Hypertension Callus of foot Balance problem Venous insufficiency of both lower extremities Change in skin mole Hyperlipidemia Flu vaccine need Winged scapula of right side Scoliosis Dry skin dermatitis Tinnitus Right ankle swelling Hordeolum of left lower eyelid Left buttock abscess Sebaceous cyst Osteoporosis Vitamin deficiency GERD (gastroesophageal reflux disease) Osteoporosis Hx of migraine headaches Seasonal allergies infected sebaceous cyst left thigh Hemorrhoids Home Medications ?Medication ?Instructions ?Recorded ?Last Taken ?Type albuterol sulfate 90 mcg/actuation 1 - 2 puff inhalation Q4H PRN PRN 01/25/23 Unknown Rx aerosol inhaler (Ventolin HFA) Wheezing ##1 ascorbic acid (vitamin C) 500 mg 1,000 mg PO DAILY 02/24/23 Unknown History capsule cyanocobalamin (vitamin B-12) 1,000 mcg PO DAILY 02/24/23 Unknown History 1,000 mcg capsule lysine 500 mg tablet 500 mg PO DAILY 02/24/23 Unknown History [id number]-[id number]-cvevg ac 400 1 tab PO .QOD 02/24/23 Unknown History mcg-calcium carb 500 mg-vit K1 20 mcg tablet (Women's 50 Plus Multivitamin) omega-3 fatty acids 1,000 mg 1,000 mg PO DAILY 02/24/23 Unknown History capsule peg 400-propylene glycol 0.4 %-0.3 1 drp ophthalmic (eye) BID-QID PRN 02/24/23 Unknown History % eye drops (Systane Ultra) dry eye(s) Lactobacillus acidophilus 250 500 mmu cells PO DAILY 07/30/23 Unknown History million cell capsule (Probiotic Acidophilus) calcium 600 mg capsule 600 mg PO DAILY 07/30/23 Unknown History aloe vera 30 ml PO DAILY 10/14/23 Unknown History ketoconazole 2 % shampoo 1 applic topical DAILY 10/14/23 Unknown History PEP device #1 ea 10/26/23 Unknown Rx alendronate 70 mg tablet 70 mg PO QWEEK #14 tabs 11/15/23 Unknown Rx diltiazem HCl 120 mg 120 mg PO QHS #90 caps 02/09/24 Unknown Rx capsule,extended release 24 hr (Cardizem CD) apixaban 5 mg tablet (Eliquis) 5 mg PO BID #60 TABLETS 03/03/24 Unknown Rx Allergy/AdvReac Type Severity Reaction Status Date / Time cefaclor Allergy Intermediate Rash Verified 03/29/24 08:07 tetracycline Allergy Intermediate sores in Verified 03/29/24 08:07 mouth [employer] AdvReac Intermediate Other Verified 03/29/24 08:07 egg AdvReac Intermediate Other Verified 03/29/24 08:07 Family History Mother Heart disease Arthritis Hypertension Kidney disease Skin cancer Thyroid disorder Father Heart disease Hypertension CVA (cerebral vascular accident) Brother Heart disease Hypertension Grandfather Alcohol abuse Arthritis Pancreatic cancer Sister PVC (premature ventricular contraction) CAD (coronary artery disease) Other Severe allergy Surgical History History of removal of cyst history ORIF right little finger Social History housing: other details: mobile home Smoking Status: Never smoker alcohol intake: current alcohol intake frequency: holidays/special occasions only substance use type: does not use caffeine: Yes (chocolate) what type of physical activity do you participate in: walking frequency: 1-2 times per week EXAM Physical Exam Const Vital Signs: 03/29/24 08:05 03/29/24 08:16 03/29/24 09:04 Temperature 96.9 F L Temperature Source Temporal Pulse Rate 141 H 88 Respiratory Rate 20 H 21 H Respiratory Effort Normal Non-Labored Blood Pressure 143/96 H 101/70 Blood Pressure Mean 111 80 Pulse Ox 94 96 Oxygen Delivery Method Room Air Room Air 03/29/24 10:00 03/29/24 11:00 Temperature Temperature Source Pulse Rate 84 79 Respiratory Rate 16 23 H Respiratory Effort Blood Pressure 128/76 H 120/69 Blood Pressure Mean 93 86 Pulse Ox 95 95 Oxygen Delivery Method Room Air Room Air [facility] [place] Narrative Medical decision making narrative: HISTORY OF PRESENT ILLNESS: 73-year-old female History of atrial fibrillation (on Eliquis), hypertension hyperlipidemia presents with concern for palpitations. Per the patient's family her heart rates been as low as 33 and as high as 169. Notes history of a flutter. Notes cough as well. She notes symptoms started last night. Awoke her from sleep. Notes some chest discomfort and mild shortness of breath. Notes chronic leg swelling. Denies any bleeding diathesis. Notes compliance with Eliquis. Last dose was last night at approximately 10 PM. Notes her next dose is scheduled for 10 AM. Denies vomiting or diarrhea. The patient denies recent surgery in the last 4 weeks or immobilization in the last 3 days, denies previous diagnosis of DVT or PE, hemoptysis, unilateral leg swelling or malignancy with treatment the last 6 months or palliative. No estrogen use noted. REVIEW OF SYSTEMS: Pertinent positives: Palpitations, chest discomfort, shortness of breath, cough Pertinent negatives: Fever, chills, vomiting, bleeding diathesis PHYSICAL EXAM: Nursing triage notes reviewed, Vital signs reviewed Constitutional: please see [facility] HENT: MMM Eyes: Pupils equal round and reactive to light, Extraocular muscles intact Neck: No stridor, no JVD, full neck ROM Lungs: Clear to auscultation, No wheezing or rales. No increased work of breathing, no conversational dyspnea, no accessory muscle use, no nasal flaring. No respiratory distress noted Heart: Fast rate, regular rhythm, No murmurs, No rubs and No gallops, 2+ distal pulses (radial, femoral, posterior tibial) in all extremities Abdomen: Soft, there is no tenderness, rigidity, rebound or guarding, no obvious peritoneal signs, no palpable pulsatile abdominal masses, no auscultated abdominal bruit : No CVAT Extremities: Trace Neuro: No focal neurological deficits, cranial nerves II through XII intact, 5/5 strength in all extremities. Intact sensation to light touch in all extremities, 2+ reflexes bilateral patella tendons. Normal gait. No ataxia. Skin: No rash or lesions noted MEDICAL DECISION MAKING: Chief Complaint: Palpitations External records reviewed: Reviewed prior cardiology note. Reviewed prior imaging studies: Echocardiogram from 2022 shows ejection fraction of 70%. Stress test in 2022 shows no diagnostic ischemic changes Factors affecting care: History of atrial fibrillation, hypertension hyperlipidemia Social determinants of health: Elderly History obtained from others: Family Consults: none MDM Narrative: Patient was initially tachycardic with a rate of 141, otherwise afebrile saturating 94% on room air. Heart was fast and irregular. Pulses were equal. Slight edema noted to lower extremities I considered the following differential diagnosis: A-fib/a flutter, anemia, electrolyte disturbance, pneumonia, COVID, ACS, PE ALL IMAGES (IF OBTAINED) HAVE BEEN PERSONALLY REVIEWED AND INTERPRETED BY MYSELF. Initial EKG shows likely a flutter at a rate of 166, prolonged QT interval, no obvious ischemic changes although is difficult to interpret given elevated rate. Similar to prior EKG from December 2022 which showed a flutter with similar morphology. Repeat EKG after diltiazem showed improved rate of 72, atrial fibrillation, no STEMI CBC without leukocytosis, severe anemia, no thrombocytopenia. BMP with hyponatremia (replaced with normal saline bolus), no other electrolyte disturbances, no evidence of metabolic acidosis with normal bicarb, no evidence of endorgan hypoperfusion with normal anion gap, no JAIME Initial troponin was negative. Will send repeat. Delta troponin is downtrending. No evidence of myocardial ischemia COVID flu RSV is negative I have personally reviewed the patient's chest x-ray. Chest x-ray is unremarkable for pulmonary edema, pneumothorax, pneumonia or focal cardiopulmonary abnormality. Urinalysis negative for UTI On reevaluation patient's vital signs improved with a heart rate of 84. She ambulate without subsequent tachycardia or hypoxia as she was saturating at 96% on room air with ambulation. I considered hospitalization with the patient however at this time she had no arrhythmia no signs of significant anemia. She did have mild hyponatremia which I encouraged her to increase her salt intake. 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 I considered obtaining a cardiology consultation without this was not indicated at this time as patient was at her baseline heart rhythm, was asymptomatic, and no signs of heart failure, ACS or other abnormalities. Was able to ambulate here without hypoxia. There is no indication for admission, consultation for further ED evaluation at this time. The patient and/or family, caregivers express understanding. The patient and/or family, caregivers agrees with the plan. Shared decision making: I will have a discussion with the patient and or visitors regarding risk/benefits of further testing or admission. They will be made aware of of the risk/benefits inherent in this decision they will be given the opportunity to voice understanding. Total critical care time today provided was at least 0 minutes. This excludes separately billable procedures. Critical care time (if documented) is secondary to the patient having high probability of clinically significant/life threatening deterioration in the patient's condition which required my urgent intervention. Impression: 1. Palpitations 2. Tachycardia 3. History of atrial fibrillation 4. Hyponatremia Dispo: Discharge home This note was generated with [employer] dictation software. It may contain incorrect words, spelling, and punctuation that were not noted in review of the chart prior to signing. Lab Data Labs: Laboratory Results - last 24 hr 03/29/24 03/29/24 03/29/24 08:20 10:40 10:51 WBC 9.1 RBC 4.90 Hgb 15.5 H Hct 45.5 MCV 92.9 MCH 31.6 MCHC 34.1 RDW Std Deviation 42.1 RDW Coeff of Jm 12.3 Plt Count 237 MPV 9.3 Sodium 129 L Potassium 3.9 Chloride 93 L Carbon Dioxide 26.0 Anion Gap 10 BUN 12 Creatinine 0.69 Estim Creat Clear Calc 45.34 Est GFR (MDRD) Af Amer 106 Est GFR (MDRD) Non-Af 88 BUN/Creatinine Ratio 17.3 Glucose 131 H Calcium 9.8 Troponin I High Sens 43 34 Urine Color Yellow Urine Clarity Clear Urine pH 6.5 Ur Specific [place] 1.015 Urine Protein 15 H Urine Glucose (UA) Normal Urine Ketones 15 H Urine Occult Blood Negative Urine Nitrite Negative Urine Bilirubin Negative Urine Urobilinogen Normal Ur Leukocyte Esterase 25 H Urine RBC 0 SEEN Urine WBC 0-5 SEEN Ur Squamous Epith Cells 0-5 SEEN Urine Bacteria 0 SEEN Urine Mucus 0 SEEN Radiography Diagnostic Testing: Clinical Impression(s) from Imaging Studies Chest X-Ray 03/29/24 08:25 IMPRESSION: Hyperinflation and chronic changes. Stable examination. Electronically Signed: Guillermo Baires MD at 8:50 EDT , Discharge Plan Triage Chief Complaint: Palpitations ED Provider: Martín Olivera Dx/Rx/DC Orders Prescriptions: No Action ascorbic acid (vitamin C) 500 mg capsule 1,000 mg PO DAILY cyanocobalamin (vitamin B-12) 1,000 mcg capsule 1,000 mcg PO DAILY lysine 500 mg tablet 500 mg PO DAILY omega-3 fatty acids 1,000 mg capsule 1,000 mg PO DAILY Systane Ultra 0.4-0.3 % drops 1 drp ophthalmic (eye) BID-QID PRN (Reason: dry eye(s)) Women's 50 Plus Multivitamin 400 mcg-500 mg calcium-20 mcg tablet 1 tab PO .QOD (DME) PEP device See Rx Instructions .ROUTE .MEDSUPPLY Qty: 1 0RF Rx Instructions: with training aloe vera Liquid 30 ml PO DAILY ketoconazole 2 % shampoo 1 applic topical DAILY albuterol sulfate [Ventolin HFA] 90 mcg/actuation HFA aerosol inhaler 1 - 2 puff inhalation Q4H PRN PRN (Reason: Wheezing) Qty: 1 0RF calcium 600 mg capsule 600 mg PO DAILY Probiotic Acidophilus 250 million cell capsule 500 mmu cells PO DAILY alendronate 70 mg tablet 70 mg PO QWEEK Qty: 14 1RF diltiazem HCl [Cardizem CD] 120 mg capsule,extended release 24hr 120 mg PO QHS Qty: 90 3RF Eliquis 5 mg tablet 5 mg PO BID Qty: 60 11RF Primary Care Provider: Adria Dos Santos Referrals: Adria Dos Santos MD [Primary Care Provider] - Print Language: German
--- NOTE | 2024-03-29 08:12 | EKG12_ITS ---
Test Reason : REPEAT Blood Pressure : / mmHG Vent. Rate : 072 BPM Atrial Rate : 000 BPM P-R Int : 000 ms QRS Dur : 078 ms QT Int : 366 ms P-R-T Axes : 000 012 024 degrees QTc Int : 400 ms Atrial fibrillation Abnormal ECG Confirmed by Alfredo Marie ([id number]), acquisitions editor YANG CARDENAS ([id number]) on 03/30/2024 2:02:20 PM Referred By: Confirmed By:Alfredo Marie
[2024-03-29] MEDS: 0.9% Normal Saline (500mL Bag) 500 ML 1000 ML IV (08:19)
--- NOTE | 2024-03-29 08:25 | RAD_ITS ---
STUDY: X-RAY CHEST REASON FOR EXAM: Female, 73 years old. Palpitations TECHNIQUE: Single AP portable view of the chest. COMPARISON: Comparison is made with prior study dated January 13, 2024. FINDINGS: EKG electrodes are seen. There are interstitial fibrotic changes of the lungs. Stable scarring in the upper lobes more prominent on the right side. There is no demonstrated pleural abnormality. Normal size heart. Normal mediastinum and jaclyn. Normal visualized pulmonary arteries. Normal visualized aortic arch and descending thoracic aorta. There are diffuse degenerative changes of the visualized thoracic spine. Dextroscoliosis. Normal visualized ribs, clavicles, and shoulders. There is no demonstrated abnormality of the visualized soft tissue structures of the upper abdomen. RAD/Chest 1 View (Portable) IMPRESSION: Hyperinflation and chronic changes. Stable examination. Electronically Signed: Guillermo Baires MD at 8:50 EDT ,
[2024-03-29] MEDS: dilTIAZem 25 MG/5 ML Vial 20 MG IV BOLUS (08:31)
[2024-03-29 08:39] LABS: Hematocrit 45.5 % (37-47); Hemoglobin 15.5 g/dL (12.0-15.0); Mean Corp Hgb Conc 34.1 g/dL (32-36); Mean Corpuscular Hgb 31.6 pg (27.0-32.0); Mean Corpuscular Volume 92.9 fL (81-99); Mean Platelet Vol. 9.3 fl (6.2-12.0); Platelet Count 237 K/mm3 (150-450); RBC Distribution Width CV 12.3 % (11.6-14.6); RBC Distribution Width SD 42.1 fl (35.1-43.9); White Blood Count 9.1 K/mm3 (4.4-11.0)
[2024-03-29 08:55] LABS: Anion Gap 10 (5-15); BUN 12 mg/dL (7-18); BUN/Creat Ratio 17.3 RATIO (10-20); Calcium,Total 9.8 mg/dL (8.5-10.1); Chloride 93 mmol/L (98-107); Creatinine, Serum 0.69 mg/dL (0.55-1.02); EST Glomerular Filtration Rate 88 mL/min (>60); Est Glom Filt Rate - Afr Amer 106 mL/min (>60); Estimated Creatinine Clearance 45.34 ml/min; Glucose 131 mg/dL (74-106); Potassium 3.9 mmol/L (3.5-5.1); Sodium Level 129 mmol/L (136-145); Troponin-I HS (w/2H Reflex) 43 pg/mL (3.0-54.0)
--- NOTE | 2024-03-29 09:05 | EKG12_ITS ---
Test Reason : PALP Blood Pressure : / mmHG Vent. Rate : 166 BPM Atrial Rate : 138 BPM P-R Int : 128 ms QRS Dur : 184 ms QT Int : 302 ms P-R-T Axes : 253 250 262 degrees QTc Int : 501 ms Critical Test Result: High HR , Arrhythmia Atrial flutter with 2:1 conduction Nonspecific T changes c/w flutter Abnormal ECG Confirmed by Alfredo Marie ([id number]), senior technical editor YANG CARDENAS ([id number]) on 03/30/2024 2:03:19 PM Referred By: NATHALY Confirmed By:Alfredo Marie
[2024-03-29 10:28] LABS: Reflex Troponin-HS? (from REC) Y
[2024-03-29 10:56] LABS: Bacteria 0 SEEN /hpf (None Seen); Mucous, Urine 0 SEEN /hpf (<or=2+); Red Blood Cells-Urine 0 SEEN /hpf (0-5)
[2024-03-29 11:06] LABS: Color, Urine Yellow (Yellow); Glucose, Dipstick Normal (Normal); Ketone-Dipstick 15 mg/dl (Negative); Leukocyte Esterase-Dipstick 25 /ul (Negative); Nitrite-Dipstick Negative (Negative); Occult Blood-Urine Negative /ul (Negative); Protein-Dipstick 15 mg/dl (Negative); Specific Gravity, Urine 1.015 (1.002-1.030); Urine Bilirubin Dipstick Negative (Negative); Urine Clarity Clear (Clear); Urine Urobilinogen Normal (Normal); Urine pH 6.5 (5.0 - 8.0)
[2024-03-29 11:09] LABS: Troponin-I HS 34 pg/mL (3.0-54.0)
[2024-03-29 11:19] LABS: Squamous Epithelial Cells - UA 0-5 SEEN /hpf (5-10); White Blood Cells 0-5 SEEN /hpf (0-5)
== END 2024-03-29 12:06 | disposition home or self-care (01) ==
PROVIDERS: Emergency Provider Emergency Medicine; PCP Internal Medicine; Visit Provider Emergency Medicine
DX: R00.2 Palpitations (principal); I48.91 Unspecified atrial fibrillation; E87.1 Hypo-osmolality and hyponatremia; Z79.01 Long term (current) use of anticoagulants; E78.5 Hyperlipidemia, unspecified; I10 Essential (primary) hypertension; Z79.899 Other long term (current) drug therapy; R06.02 Shortness of breath
CPT/HCPCS: 71045; 80048; 81001; 84484; 85027; 87631; 93005; 99284; J7040; A4216

== ENCOUNTER 2024-04-01 17:15 | Emergency (ER) | payer MEDICARE, SELFPAY ==
[2024-04-01 17:15] VITALS: BP 173/101; PULSE 96; RESP 18; TEMP 36.8; O2SAT 95; BMI 19.1
--- NOTE | 2024-04-01 17:36 | EKG12_ITS ---
Test Reason : Blood Pressure : / mmHG Vent. Rate : 087 BPM Atrial Rate : 087 BPM P-R Int : 126 ms QRS Dur : 064 ms QT Int : 362 ms P-R-T Axes : 067 -33 021 degrees QTc Int : 435 ms Normal sinus rhythm Possible Left atrial enlargement Left axis deviation Cannot rule out Inferior infarct , age undetermined Abnormal ECG Confirmed by MACRINA FELICIANO, JATINDER ([id number]), newspaper or periodical editor DENIS CEDILLO ([id number]) on 04/04/2024 8:13:44 AM Referred By: Confirmed By:JATINDER SCHRADER MD
--- NOTE | 2024-04-01 17:38 | ED.VIS.LOWEX ---
HPI History of Present Illness HPI Narrative: 73-year-old female history of A-fib with worsening lower extremity edema. Was seen in the ER on Wednesday. Mild shortness of breath. No chest pain. Chief Complaint: Edema Informant: patient Onset/Context/Timing Current Severity: Mild Maximum Severity: Mild Narrative Narrative: 73-year-old female history of A-fib with increasing lower extremity edema Prior similar symptoms: Yes Recent Illness/Hospitalization: No PFSH PFSH Medical History Muscle weakness Wears glasses Post-menopausal Cancer Depression Anxiety Arthritis Easy bruising Back pain Syncope Gastric reflux Non-smoker Shortness of breath on exertion Leg cramps Hypertension History of echocardiogram History of stress test History of atrial fibrillation Cardiology follow-up encounter History of Mohs micrographic surgery for skin cancer Dermatitis Pulmonary Mycobacterium avium complex (MAC) infection Bronchiectasis Lung nodules Tinea corporis Elevated blood pressure reading in office without diagnosis of hypertension Chest pain Dyspnea on exertion Elevated liver enzymes SOB (shortness of breath) Palpitations Pneumonia due to COVID-19 virus Urinary incontinence Contact with and (suspected) exposure to other viral communicable diseases Acute bronchitis Abdominal discomfort Health care maintenance Hypertension Callus of foot Balance problem Venous insufficiency of both lower extremities Change in skin mole Hyperlipidemia Flu vaccine need Winged scapula of right side Scoliosis Dry skin dermatitis Tinnitus Right ankle swelling Hordeolum of left lower eyelid Left buttock abscess Sebaceous cyst Osteoporosis Vitamin deficiency GERD (gastroesophageal reflux disease) Osteoporosis Hx of migraine headaches Seasonal allergies infected sebaceous cyst left thigh Hemorrhoids Home Medications ?Medication ?Instructions ?Recorded ?Last Taken ?Type albuterol sulfate 90 mcg/actuation 1 - 2 puff inhalation Q4H PRN PRN 01/25/23 Unknown Rx aerosol inhaler (Ventolin HFA) Wheezing ##1 ascorbic acid (vitamin C) 500 mg 1,000 mg PO DAILY 02/24/23 Unknown History capsule cyanocobalamin (vitamin B-12) 1,000 mcg PO DAILY 02/24/23 Unknown History 1,000 mcg capsule lysine 500 mg tablet 500 mg PO DAILY 02/24/23 Unknown History [id number] ac 400 1 tab PO .QOD 02/24/23 Unknown History mcg-calcium carb 500 mg-vit K1 20 mcg tablet (Women's 50 Plus Multivitamin) omega-3 fatty acids 1,000 mg 1,000 mg PO DAILY 02/24/23 Unknown History capsule peg 400-propylene glycol 0.4 %-0.3 1 drp ophthalmic (eye) BID-QID PRN 02/24/23 Unknown History % eye drops (Systane Ultra) dry eye(s) Lactobacillus acidophilus 250 500 mmu cells PO DAILY 07/30/23 Unknown History million cell capsule (Probiotic Acidophilus) calcium 600 mg capsule 600 mg PO DAILY 07/30/23 Unknown History aloe vera 30 ml PO DAILY 10/14/23 Unknown History ketoconazole 2 % shampoo 1 applic topical DAILY 10/14/23 Unknown History PEP device #1 ea 10/26/23 Unknown Rx alendronate 70 mg tablet 70 mg PO QWEEK #14 tabs 11/15/23 Unknown Rx diltiazem HCl 120 mg 120 mg PO QHS #90 caps 02/09/24 Unknown Rx capsule,extended release 24 hr (Cardizem CD) apixaban 5 mg tablet (Eliquis) 5 mg PO BID #60 TABLETS 03/03/24 Unknown Rx furosemide 20 mg tablet (Lasix) 20 mg PO DAILY 10 days #10 tabs 04/01/24 Unknown Rx Allergy/AdvReac Type Severity Reaction Status Date / Time cefaclor Allergy Intermediate Rash Verified 04/01/24 17:18 tetracycline Allergy Intermediate sores in Verified 04/01/24 17:18 mouth [place] [employer] AdvReac Intermediate Other Verified 04/01/24 17:18 egg AdvReac Intermediate Other Verified 04/01/24 17:18 Family History Mother Heart disease Arthritis Hypertension Kidney disease Skin cancer Thyroid disorder Father Heart disease Hypertension CVA (cerebral vascular accident) Brother Heart disease Hypertension Grandfather Alcohol abuse Arthritis Pancreatic cancer Sister PVC (premature ventricular contraction) CAD (coronary artery disease) Other Severe allergy Surgical History History of removal of cyst history ORIF right little finger Social History housing: other details: mobile home Smoking Status: Never smoker alcohol intake: current alcohol intake frequency: holidays/special occasions only substance use type: does not use caffeine: Yes (chocolate) what type of physical activity do you participate in: walking frequency: 1-2 times per week ROS ROS ED ROS Narrative Bilateral leg swelling. Mild shortness of breath. Constitutional Constitutional ED: Denies chills or fever(s) Eyes Eyes: Denies blurry vision ENT ENT ED: Denies ear pain Cardiovascular Cardiovascular: Denies chest pain Respiratory/Chest Respiratory/Chest: Denies cough or dyspnea Gastrointestinal Gastrointestinal: Denies abdominal pain Genitourinary Genitourinary ED: Denies dysuria or hematuria Musculoskeletal Musculoskeletal: Denies arthralgias, back pain, myalgias or neck pain Integumentary Denies abscess or Abrasions Neurologic Neurologic: Denies headache(s) Psychiatric Psychiatric: Denies anxiety Endocrine Endocrinology: Denies polydipsia or polyphagia Hematologic/Lymphatic Hematologic/Lymphatic: Denies easy bleeding, easy bruising or lymphadenopathy Allergic/Immunologic Allergic/Immunologic ED: Denies mouth swelling, tongue swelling or urticaria EXAM Physical Exam Narrative Exam Narrative: Abrasion Buder female. Vital signs stable afebrile. Pulse ox 95% on room air no signs of hypoxia. H EENT exam unremarkable. Neck nontender no JVD. Lungs clear to auscultation bilaterally. Heart regular rate and rhythm no murmur. Abdomen is soft and nontender. Moving all 4 extremities. Calves are nontender. There is 1+ pitting edema up to both knees. Normal dorsi plantarflexion. Neurologically patient is awake alert no focal motor deficits. Const Vital Signs: 04/01/24 17:15 04/01/24 17:36 04/01/24 17:57 Temperature 98.2 F Temperature Source Oral Pulse Rate 96 Respiratory Rate 18 Respiratory Effort Normal Respiratory Pattern Normal Blood Pressure 173/101 H Blood Pressure Mean 125 Pulse Ox 95 Oxygen Delivery Method Room Air Room Air 04/01/24 17:59 04/01/24 19:15 Temperature Temperature Source Pulse Rate 88 90 Respiratory Rate 16 18 Respiratory Effort Respiratory Pattern Blood Pressure 166/95 H 151/81 H Blood Pressure Mean 118 104 Pulse Ox 91 95 Oxygen Delivery Method Room Air Room Air Positive well nourished and well developed; Negative for obese, cachectic, contractures or unkempt General Appearance ED: well developed and NAD; Negative for unkempt, cachectic or contractures Nutritional Appearance: Negative for cachectic or obese HEENT Reports moist mucous membranes normocephalic and atraumatic; Negative for trauma or tenderness Eyes PERRL General Eye ED: Negative for other Neck full ROM and supple Thyroid: Negative for tender Lymph Lymphatic: Negative for other Chest Wall inspection of chest normal and palpation of chest normal Resp normal respiratory effort, no retractions and clear to auscultation bilaterally Effort and Inspection: Negative for pain with movement Auscultation: Negative for rales, rhonchi, wheezes or diminished lung sounds Cardio regular rate, regular rhythm, S1 normal heart sound, S2 normal heart sound and no murmurs Rate: Negative for bradycardia or tachycardic GI non-tender, non-distended and no masses Inspection: Negative for abdominal distention Palpation: soft; Negative for tender, guarding or rebound tenderness present Back/Spine no CVA tenderness General Back: Negative for CVA tenderness Cervical Spine: Negative for cervical spine tenderness Thoracic Spine / Upper Back: Negative for thoracic spinal tenderness Lumbar Spine / Lower Back: Negative for lumbar spinal tenderness Extremity full ROM; Negative for normal to inspection Extremity Narrative: Bilateral lower extremity pitting edema 1+. Calves are nontender. No cords. General Extremety ED: Yes edema General Extremity: edema Neuro oriented x3, CN's II-XII intact bilaterally and moves all extremities Sensorium / Orientation: alert, oriented to person, oriented to place and oriented to time Motor Exam: strength 5/5 throughout Psych mental status grossly normal Appearance: Negative for unkempt Speech: No other Mood & Affect: Negative for anxious Skin no wounds Lesions: no lesions Rashes: no rashes Trauma: Negative for abrasion or laceration MDM MDM MDM Narrative Medical decision making narrative: 73-year-old female worsening lower extremity edema. Cardiac workup. Repeat exam unchanged at 8:10 PM. Her sodium is 129 but [address] way 3 days ago when she had prior labs. Her most recent echo was a year ago in 2022 and her ejection fraction at time was 70%. She will be placed on a low-dose of Lasix for the next 10 days. Follow-up with her primary care physician to ensure the swelling in her legs is improving and have her sodium rechecked. History & Record Review Discussion w/independent historian: Patient and Family Additional record(s) reviewed:: Prior inpatient record, Prior outpatient record, Prior ED visit and Prior labs Lab Data Attestation: I reviewed the patient's lab results. Lab results narrative: CBC normal. White count of 7. H&H 14 and 41. Platelets 235. Electrolytes show sodium 129. Gap 8. Normal BUN and creatinine. Glucose 137. Troponin normal at 7. BNP normal at 44. Chest x-ray chronic changes. EKG sinus rhythm. Labs: Laboratory Results - last 24 hr 04/01/24 17:48 WBC 7.5 RBC 4.59 Hgb 14.2 Hct 41.9 MCV 91.3 MCH 30.9 MCHC 33.9 RDW Std Deviation 40.8 RDW Coeff of Jm 12.2 Plt Count 235 MPV 9.0 Immature Gran % (Auto) 0.300 Neut % (Auto) 72.5 H Lymph % (Auto) 11.[address] [place] % (Auto) 15.0 H Eos % (Auto) 0.4 Baso % (Auto) 0.7 Absolute Neuts (auto) 5.5 Absolute Lymphs (auto) 0.83 Nucleated RBC % 0 Sodium 129 L Potassium 3.8 Chloride 92 L Carbon Dioxide 29.0 Anion Gap 8 BUN 13 Creatinine 0.60 Estim Creat Clear Calc 46.90 Est GFR (MDRD) Af Amer 124 Est GFR (MDRD) Non-Af 103 BUN/Creatinine Ratio 21.5 H Glucose 137 H Calcium 9.3 Troponin I High Sens 7 B-Natriuretic Peptide 44.6 Radiography Chest X-Ray - ED: 1 View, Read by ED Physician, Read by Radiologist, Normal, Heart, Lungs, Mediastinum, Bony Structures, No Acute Disease and Chronic Changes Diagnostic Testing: Clinical Impression(s) from Imaging Studies Chest X-Ray 04/01/24 17:55 IMPRESSION: Overall stable exam. Mild increased opacity at the right upper lung field is likely summation shadow. Hyperinflation and chronic lung changes. Electronically Signed: Cherry Smith MD at 18:54 EDT , Chest x-ray, portable, single view interpreted both by myself and radiologist. Shows normal cardiac silhouette. No CHF. No pleural effusions. There is a density in the right upper lung which is most likely from overlapping shadows including a rib the clavicle and lung. Also seen and discussed by the radiologist. Rhythm Strip Rhythm Strip: Sinus Rhythm Rate: 87 Ectopy: None EKG Initial EKG: Attestation: I personally reviewed and interpreted this EKG as follows: Interpretation: Sinus Rhythm and No Acute Injury Pattern Comments: Normal sinus rhythm rate 87 no acute signs of WI or ischemia. Discharge Plan Triage Chief Complaint: Edema ED Provider: Toi Gonzáles Dx/Rx/DC Orders Clinical Impression: Edema of both lower legs due to peripheral venous insufficiency, Acute hyponatremia Instructions: ED Peripheral Edema, Bilateral Prescriptions: New furosemide [Lasix] 20 mg tablet 20 mg PO DAILY 10 Days Qty: 10 0RF Rx Instructions: Take each morning after breakfast. No Action ascorbic acid (vitamin C) 500 mg capsule 1,000 mg PO DAILY cyanocobalamin (vitamin B-12) 1,000 mcg capsule 1,000 mcg PO DAILY lysine 500 mg tablet 500 mg PO DAILY omega-3 fatty acids 1,000 mg capsule 1,000 mg PO DAILY Systane Ultra 0.4-0.3 % drops 1 drp ophthalmic (eye) BID-QID PRN (Reason: dry eye(s)) Women's 50 Plus Multivitamin 400 mcg-500 mg calcium-20 mcg tablet 1 tab PO .QOD (DME) PEP device See Rx Instructions .ROUTE .MEDSUPPLY Qty: 1 0RF Rx Instructions: with training aloe vera Liquid 30 ml PO DAILY ketoconazole 2 % shampoo 1 applic topical DAILY albuterol sulfate [Ventolin HFA] 90 mcg/actuation HFA aerosol inhaler 1 - 2 puff inhalation Q4H PRN PRN (Reason: Wheezing) Qty: 1 0RF calcium 600 mg capsule 600 mg PO DAILY Probiotic Acidophilus 250 million cell capsule 500 mmu cells PO DAILY alendronate 70 mg tablet 70 mg PO QWEEK Qty: 14 1RF diltiazem HCl [Cardizem CD] 120 mg capsule,extended release 24hr 120 mg PO QHS Qty: 90 3RF Eliquis 5 mg tablet 5 mg PO BID Qty: 60 11RF Primary Care Provider: Adria Dos Santos Referrals: Adria Dos Santos MD [Primary Care Provider] - 1 Week Activity Restrictions/Additional Instructions: Your labs look good. Your sodium was slightly low at 129. That was similar to what it was 3 days ago and you have labs done last week. Follow-up with your primary care physician Dr. Martinez within a week to ensure you are improving. I will start you on medication Lasix which will make you urinate more to hopefully get rid of the fluid in your legs. Your sodium can be rechecked in 1 to 2 weeks to ensure it is not getting worse. Print Language: Qatari Disposition Disposition: Home, Self Care
--- NOTE | 2024-04-01 17:55 | RAD_ITS ---
EXAM: XR CHEST, 1 VIEW CLINICAL INDICATION: CHEST PAIN TECHNIQUE: Frontal view of the chest. COMPARISON: November 28, 2023. January 13, 2024. FINDINGS: LUNGS AND PLEURAL SPACES: Mild increased opacity in the right lung apex is likely due to summation shadow from overlapping ribs and previously seen mild increased streaky opacity. The lungs are hyperinflated with similar degree of increased interstitial markings. No confluent alveolar infiltrate or effusion. Slight apical pleural thickening again noted. No pneumothorax. HEART: Unremarkable. Cardiac silhouette not enlarged. MEDIASTINUM: Central airways and mediastinal contour are unremarkable. BONES/JOINTS: Mild S-shaped thoracolumbar scoliosis. No acute fracture. SOFT TISSUES: Unremarkable. RAD/Chest 1 View (Portable) IMPRESSION: Overall stable exam. Mild increased opacity at the right upper lung field is likely summation shadow. Hyperinflation and chronic lung changes. Electronically Signed: Cherry Smith MD at 18:54 EDT ,
[2024-04-01 17:57] LABS: Absolute Lymphocyte Count 0.83 X10^3/uL (0.83-4.51); Absolute Neutrophil Count 5.5 X10^3/uL (2.0-7.7); Basophil# 0.05 X10^3/uL; Basophil% 0.7 % (0-1); Eosinophil# 0.03 X10^3/uL; Eosinophils% 0.4 % (0-5); Hematocrit 41.9 % (37-47); Hemoglobin 14.2 g/dL (12.0-15.0); Lymphocyte # 0.83 X10^3/ul (0.83-4.51); Lymphocyte % 11.1 % (19-41); Mean Corp Hgb Conc 33.9 g/dL (32-36); Mean Corpuscular Hgb 30.9 pg (27.0-32.0); Mean Corpuscular Volume 91.3 fL (81-99); Monocyte# 1.13 X10^3/uL; NRBC Flagged by Analyzer 0 % (0-5); Neutrophil # 5.45 X10^3/uL (2.7-7.7); Neutrophil % 72.5 % (47-70); Platelet Count 235 K/mm3 (150-450); RBC Distribution Width CV 12.2 % (11.6-14.6); RBC Distribution Width SD 40.8 fl (35.1-43.9); Red Blood Count 4.59 M/mm3 (4.2-5.4); White Blood Count 7.5 K/mm3 (4.4-11.0)
[2024-04-01 17:59] VITALS: BP 166/95; PULSE 88; RESP 16; O2SAT 91
[2024-04-01 18:22] LABS: Anion Gap 8 (5-15); BUN 13 mg/dL (7-18); BUN/Creat Ratio 21.5 RATIO (10-20); Calcium,Total 9.3 mg/dL (8.5-10.1); Chloride 92 mmol/L (98-107); EST Glomerular Filtration Rate 103 mL/min (>60); Est Glom Filt Rate - Afr Amer 124 mL/min (>60); Glucose 137 mg/dL (74-106); Potassium 3.8 mmol/L (3.5-5.1); Sodium Level 129 mmol/L (136-145); Troponin-I HS 7 pg/mL (3.0-54.0)
[2024-04-01 19:06] LABS: BNP,B-Type NATRIURETIC PEPTIDE 44.6 pg/mL (0-100)
[2024-04-01 19:15] VITALS: BP 151/81; PULSE 90; RESP 18; O2SAT 95
[2024-04-01 20:25] VITALS: BP 173/99; PULSE 96; RESP 16; TEMP 36.8; O2SAT 95
== END 2024-04-01 20:26 | disposition home or self-care (01) ==
PROVIDERS: Emergency Provider Emergency Medicine; PCP Internal Medicine; Visit Provider Emergency Medicine
DX: R60.0 Localized edema (principal); I48.91 Unspecified atrial fibrillation; E87.1 Hypo-osmolality and hyponatremia; R06.02 Shortness of breath; I87.2 Venous insufficiency (chronic) (peripheral); E78.5 Hyperlipidemia, unspecified; I10 Essential (primary) hypertension; Z79.01 Long term (current) use of anticoagulants; Z79.899 Other long term (current) drug therapy
CPT/HCPCS: 71045; 80048; 83880; 84484; 85025; 93005; 99284; A4216

== ENCOUNTER → 2024-04-06 | Outpatient (CLI) | payer MEDICARE, SELFPAY ==
[2024-04-06 15:19] LABS: Mucous, Urine 0 SEEN /hpf (<or=2+); Red Blood Cells-Urine 0 SEEN /hpf (0-5)
[2024-04-06 16:12] LABS: Anion Gap 8 (5-15); BUN 13 mg/dL (7-18); BUN/Creat Ratio 22.3 RATIO (10-20); Calcium,Total 9.9 mg/dL (8.5-10.1); Chloride 93 mmol/L (98-107); Creatinine, Serum 0.58 mg/dL (0.55-1.02); EST Glomerular Filtration Rate 107 mL/min (>60); Est Glom Filt Rate - Afr Amer 129 mL/min (>60); Glucose 112 mg/dL (74-106); Potassium 4.4 mmol/L (3.5-5.1); Sodium Level 131 mmol/L (136-145)
[2024-04-06 16:52] LABS: Color, Urine Yellow (Yellow); Glucose, Dipstick Normal (Normal); Ketone-Dipstick 5 mg/dl (Negative); Leukocyte Esterase-Dipstick Negative /ul (Negative); Nitrite-Dipstick Negative (Negative); Occult Blood-Urine Negative /ul (Negative); Protein-Dipstick 15 mg/dl (Negative); Urine Bilirubin Dipstick Negative (Negative); Urine Clarity Clear (Clear); Urine Urobilinogen Normal (Normal); Urine pH 6.5 (5.0 - 8.0)
[2024-04-06 17:13] LABS: Amorphous Sediment 1+; Bacteria 2+ /hpf (None Seen); Squamous Epithelial Cells - UA 0-5 SEEN /hpf (5-10); White Blood Cells 0-5 SEEN /hpf (0-5)
== END | disposition home or self-care (01) ==
LOC: BIMLAB 14:08
PROVIDERS: PCP Internal Medicine; Visit Provider Internal Medicine
DX: R32 Unspecified urinary incontinence (principal); R82.90 Unspecified abnormal findings in urine; E87.1 Hypo-osmolality and hyponatremia
CPT/HCPCS: 36415; 80048; 81001; 87086

== ENCOUNTER → 2024-06-13 | Outpatient (CLI) | payer MEDICARE, SELFPAY | END | disposition home or self-care (01) | LOC: PSN 12:45 | PROVIDERS: PCP Internal Medicine; Referring Provider Nurse Practitioner Acute Care; Visit Provider Nurse Practitioner Acute Care | DX: R06.09 Other forms of dyspnea (principal) | CPT/HCPCS: 94060; 94726; 94729 ==

== ENCOUNTER → 2024-07-13 | Outpatient (CLI) | payer MEDICARE, SELFPAY ==
[2024-07-13 11:21] VITALS: PULSE 81; PULSE 82; PULSE 84; PULSE 86; PULSE 87; PULSE 90; O2SAT 91; O2SAT 93; O2SAT 94; O2SAT 95; O2SAT 96
--- NOTE | 2024-07-17 12:19 | WT_ITS ---
PSN 6 Minute Walk Test 6 Minute Walk Test 6 Minute Walk Test: 6 Minute Walk Test PSN:6-Minute Walk Test Start: 07/13/24 11:20 Freq: Status: Active Protocol: [id number] Document 07/13/24 11:21 [facility] (Rec: 07/13/24 11:27 [facility] [id number]) 6 Minute Walk Test Date Performed 07/13/24 Time Performed 11:00 Height 5 ft 3 in Weight: 100 lb Weight in Pounds 100.[address]: Tiera James SEAMER Assistive device used: Walker Pre-test Oxygen Delivery Method Room Air Pulse Ox (%) 95 Pulse Rate (60-100 beats/min) 82 Dyspnea Elma Scale (0-10) 0 1st minute Oxygen Delivery Method Room Air Pulse Ox (%) 94 Pulse Rate (60-100 beats/min) 86 Dyspnea [place] Scale (0-10) 0 Number of Rests Taken 0 2nd minute Oxygen Delivery Method Room Air Pulse Ox (%) 93 Pulse Rate (60-100 beats/min) 84 Dyspnea [place]ma Scale (0-10) 0 Number of Rests Taken 0 3rd minute Oxygen Delivery Method Room Air Pulse Ox (%) 91 Pulse Rate (60-100 beats/min) 87 Dyspnea [place]ma Scale (0-10) 0 Number of Rests Taken 0 4th minute Oxygen Delivery Method Room Air Pulse Ox (%) 93 Pulse Rate (60-100 beats/min) 86 Dyspnea [place]ma Scale (0-10) 0 Number of Rests Taken 0 5th minute Oxygen Delivery Method Room Air Pulse Ox (%) 94 Pulse Rate (60-100 beats/min) 87 Dyspnea [place]ma Scale (0-10) 0 Number of Rests Taken 0 6th minute Oxygen Delivery Method Room Air Pulse Ox (%) 95 Pulse Rate (60-100 beats/min) 90 Dyspnea Elma Scale (0-10) 0 Number of Rests Taken 0 Post-test Oxygen Delivery Method Room Air Pulse Ox (%) 96 Pulse Rate (60-100 beats/min) 81 Dyspnea [place]ma Scale (0-10) 0 Full Laps Walked 12 Partial Lap, Number of Tiles Walked 23 Total Distance Walked (ft) 731 Interpretation Interpretation: The patient ambulated 731 feet over the course of 6 minutes beginning on room air with use of a walker. Pretesting oxygen saturation was noted to be 95% on room air. With ambulation, the odell oxygen saturation was 91%. There was no significant exertional oxygen desaturation. Recommendations Recommendations: There is no indication for the use of supplemental oxygen at this time.
== END | disposition home or self-care (01) ==
LOC: PSN 10:52
PROVIDERS: PCP Internal Medicine; Referring Provider Nurse Practitioner Acute Care; Visit Provider Nurse Practitioner Acute Care
DX: R06.09 Other forms of dyspnea (principal)
CPT/HCPCS: 94618

== ENCOUNTER → 2024-07-31 | Outpatient (CLI) | payer MEDICARE, SELFPAY ==
[2024-07-31 16:34] LABS: Absolute Lymphocyte Count 0.75 X10^3/uL (0.83-4.51); Absolute Neutrophil Count 4.3 X10^3/uL (2.0-7.7); Basophil# 0.06 X10^3/uL; Eosinophil# 0.04 X10^3/uL; Eosinophils% 0.7 % (0-5); Hematocrit 41.4 % (37-47); Hemoglobin 13.2 g/dL (12.0-15.0); Lymphocyte # 0.75 X10^3/ul (0.83-4.51); Lymphocyte % 12.8 % (19-41); Mean Corp Hgb Conc 31.9 g/dL (32-36); Mean Corpuscular Volume 100.5 fL (81-99); Mean Platelet Vol. 9.3 fl (6.2-12.0); Monocyte# 0.71 X10^3/uL; Monocyte% 12.1 % (0-10); NRBC Flagged by Analyzer 0 % (0-5); Neutrophil % 73.1 % (47-70); Platelet Count 275 K/mm3 (150-450); RBC Distribution Width CV 13.2 % (11.6-14.6); RBC Distribution Width SD 49.1 fl (35.1-43.9); Red Blood Count 4.12 M/mm3 (4.2-5.4); White Blood Count 5.9 K/mm3 (4.4-11.0)
[2024-07-31 16:39] LABS: Anion Gap 4 (5-15); BUN 21 mg/dL (7-18); BUN/Creat Ratio 32.8 RATIO (10-20); Calcium,Total 9.8 mg/dL (8.5-10.1); Chloride 101 mmol/L (98-107); Creatinine, Serum 0.64 mg/dL (0.55-1.02); EST Glomerular Filtration Rate 96 mL/min (>60); Est Glom Filt Rate - Afr Amer 116 mL/min (>60); Glucose 93 mg/dL (74-106); Potassium 4.7 mmol/L (3.5-5.1); Sodium Level 137 mmol/L (136-145)
== END | disposition home or self-care (01) ==
LOC: BIMLAB 15:21
PROVIDERS: PCP Internal Medicine; Referring Provider Internal Medicine; Visit Provider Internal Medicine
DX: I10 Essential (primary) hypertension (principal)
CPT/HCPCS: 36415; 80048; 85025

== ENCOUNTER → 2025-01-17 | Outpatient (CLI) | payer MEDICARE, SELFPAY ==
[2025-01-17 15:42] LABS: Absolute Lymphocyte Count 0.99 X10^3/uL (0.83-4.51); Absolute Neutrophil Count 5.4 X10^3/uL (2.0-7.7); Basophil# 0.07 X10^3/uL; Basophil% 0.9 % (0-1); Eosinophil# 0.06 X10^3/uL; Eosinophils% 0.8 % (0-5); Hematocrit 40.4 % (37-47); Hemoglobin 13.5 g/dL (12.0-15.0); Lymphocyte # 0.99 X10^3/ul (0.83-4.51); Lymphocyte % 13.4 % (19-41); Mean Corp Hgb Conc 33.4 g/dL (32-36); Mean Corpuscular Hgb 32.3 pg (27.0-32.0); Mean Corpuscular Volume 96.7 fL (81-99); Mean Platelet Vol. 9.6 fl (6.2-12.0); Monocyte# 0.85 X10^3/uL; Monocyte% 11.5 % (0-10); NRBC Flagged by Analyzer 0 % (0-5); Neutrophil # 5.41 X10^3/uL (2.7-7.7); Neutrophil % 73.1 % (47-70); Platelet Count 241 K/mm3 (150-450); RBC Distribution Width SD 45.9 fl (35.1-43.9); Red Blood Count 4.18 M/mm3 (4.2-5.4); White Blood Count 7.4 K/mm3 (4.4-11.0)
[2025-01-17 16:47] LABS: ALB/GLOB Ratio 1.4 RATIO (0.9-2.4); AST(SGOT) 28 U/L (<=31); Alanine Aminotransfer ALT/SGPT 22 U/L (<=34); Alkaline Phosphatase 104 U/L (35-104); Anion Gap 10 (5-15); BUN 18 mg/dL (4-19); BUN/Creat Ratio 30.3 RATIO (10-20); Calcium,Total 9.6 mg/dL (7.6-11.0); Carbon Dioxide 27.1 mmol/L (21.0-32.0); Chloride 99 mmol/L (98-108); Creatinine, Serum 0.58 mg/dL (0.70-1.20); EST Glomerular Filtration Rate 94 (>60); Globulin 2.9 g/dL (2.2-4.2); Glucose 104 mg/dL (70-99); Potassium 4.2 mmol/L (3.3-5.1); Sodium Level 135 mmol/L (133-145); Total Bilirubin 0.41 mg/dL (0.00-1.30)
[2025-01-17 16:50] LABS: Vitamin B12 986 pg/mL (180-914); Vitamin D,25 Hydroxy 42.1 ng/mL (30-100)
== END | disposition home or self-care (01) ==
LOC: BIMLAB 14:12
PROVIDERS: PCP Internal Medicine; Referring Provider Internal Medicine; Visit Provider Internal Medicine
DX: F41.9 Anxiety disorder, unspecified (principal); F32.A Depression, unspecified; M81.0 Age-related osteoporosis without current pathological fracture; K21.9 Gastro-esophageal reflux disease without esophagitis
CPT/HCPCS: 36415; 80053; 82306; 82607; 85025

== ENCOUNTER → 2025-05-31 | Outpatient (CLI) | payer MEDICARE, SELFPAY ==
--- NOTE | 2025-05-31 13:52 | EKG12_ITS ---
Test Reason : PREOP
--- NOTE | 2025-05-31 13:53 | CT_ITS ---
PROCEDURE: CT/Chest WITH Contrast
[2025-05-31 15:43] LABS: Hematocrit 41.6 % (37-47); Hemoglobin 14.0 g/dL (12.0-15.0); Immature Granulocytes Count 0.020 X10^3/uL (0.0-0.0); Mean Corp Hgb Conc 33.7 g/dL (32-36); Mean Corpuscular Volume 94.8 fL (81-99); Mean Platelet Vol. 9.8 fl (6.2-12.0); NRBC Flagged by Analyzer 0 % (0-5); Platelet Count 229 K/mm3 (150-450); RBC Distribution Width CV 12.2 % (11.6-14.6); RBC Distribution Width SD 42.6 fl (35.1-43.9); Red Blood Count 4.39 M/mm3 (4.2-5.4); White Blood Count 4.9 K/mm3 (4.4-11.0)
[2025-05-31 16:15] LABS: AST(SGOT) 45 U/L (<=31); Alanine Aminotransfer ALT/SGPT 50 U/L (<=34); Albumin, Serum 4.1 g/dL (3.4-4.8); Alkaline Phosphatase 106 U/L (35-104); Anion Gap 8 (5-15); BUN 21 mg/dL (4-19); BUN/Creat Ratio 24.3 RATIO (10-20); Calcium,Total 9.9 mg/dL (7.6-11.0); Carbon Dioxide 29.8 mmol/L (21.0-32.0); Chloride 98 mmol/L (98-108); Globulin 3.6 g/dL (2.2-4.2); Glucose 87 mg/dL (70-99); Potassium 4.7 mmol/L (3.3-5.1)
== END | disposition home or self-care (01) ==
PROVIDERS: PCP Internal Medicine; Referring Provider Internal Medicine Infectious Disease; Visit Provider Internal Medicine Infectious Disease
DX: A31.0 Pulmonary mycobacterial infection (principal); F41.9 Anxiety disorder, unspecified; F32.A Depression, unspecified
CPT/HCPCS: 36415; 71260; 80053; 85025; 93005; Q9967

== ENCOUNTER → 2025-06-27 | Outpatient (CLI) | payer MEDICARE, SELFPAY ==
[2025-06-27 17:09] LABS: Hematocrit 41.7 % (37-47); Hemoglobin 13.5 g/dL (12.0-15.0); Mean Corp Hgb Conc 32.4 g/dL (32-36); Mean Corpuscular Volume 97.4 fL (81-99); Mean Platelet Vol. 9.9 fl (6.2-12.0); Platelet Count 240 K/mm3 (150-450); RBC Distribution Width CV 12.2 % (11.6-14.6); RBC Distribution Width SD 43.8 fl (35.1-43.9); Red Blood Count 4.28 M/mm3 (4.2-5.4); White Blood Count 3.7 K/mm3 (4.4-11.0)
[2025-06-27 17:46] LABS: AST(SGOT) 33 U/L (<=31); Alanine Aminotransfer ALT/SGPT 39 U/L (<=34); Albumin, Serum 3.9 g/dL (3.4-4.8); Alkaline Phosphatase 100 U/L (35-104); Anion Gap 11 (5-15); BUN 20 mg/dL (4-19); BUN/Creat Ratio 30.2 RATIO (10-20); Calcium,Total 9.5 mg/dL (7.6-11.0); Carbon Dioxide 26.5 mmol/L (21.0-32.0); Chloride 102 mmol/L (98-108); Globulin 3.0 g/dL (2.2-4.2); Glucose 83 mg/dL (70-99); Potassium 4.8 mmol/L (3.3-5.1)
== END | disposition home or self-care (01) ==
LOC: LAB 14:46
PROVIDERS: PCP Internal Medicine; Referring Provider Internal Medicine Infectious Disease; Visit Provider Internal Medicine Infectious Disease
DX: A31.0 Pulmonary mycobacterial infection (principal)
CPT/HCPCS: 36415; 80053; 85027